=== PATIENT | female | born 1985 | race African-American/Black ===

== ENCOUNTER 2025-05-06 08:05 | Outpatient (AMB) | payer OTHER, SELFPAY ==
--- OUTSIDE RECORDS SUMMARY | 2025-01-29 08:00 | XMS_ITS | Encounter Summary ---
Author Organization [facility] Address [address] [place] [address] Care Team Providers Care Supervisor Long Goods Name Role Phone Gerald Haddad MD Primary Care Provider [phone] Reason for Visit * Reason Comments Follow-up Encounter Details Date Type Department Care Team ([facility] st Contact Info) Description 01/29/2025 9:00 AM EDT Office Visit [facility] Hematology Oncology [address] [place] [phone] Elizabeth Sargent PA [address] [place] [address] Iron deficiency anemia due to chronic blood loss (Primary Dx); Menorrhagia with regular cycle Social History Tobacco Use Types Packs/Day Years Used Date Smoking Tobacco: Never Smokeless Tobacco: Never Tobacco Cessation:Counseling Given: Not Answered Alcohol Use Standard Drinks/Week Comments Yes 1 (1 standard drink = 0.6 oz pur e alcohol) Housing Instability Answer Date Recorde d Are you worried that in the next 2 months you may not have stable housing? Yes 09/19/2024 Food Access & Nutrition Answer Date Rec orded Do you have access to a vari ety of food including fruits and vegetables? Yes 09/19/2024 Access to Healthcare Answer Date Record ed Within the last 3 months, sarabjit w many times did you visit the emergency department for your medical care? 0 09/19/2024 Health Literacy Answer Date Recorded How often do you need to hav e someone help you when you read instructions, pamphlets, or other written material from your doctor or pharmacy? Never 09/19/2024 Caregiver: How often do you need to have someone help you when you read instructions, pamphlets, or other written material from your doctor or pharmacy? Not on file 09/19/2024 Financial Risk Answer Date Recorded How hard is it for you to pa y for the very basics like food, housing, medical care, and air conditioning / heating? Very hard 09/19/2024 Transportation Answer Date Recorded Has the lack of transportati on kept you from meetings, work, or from getting things needed for daily living? No Has the lack of transportati on kept you from medical appointments or from getting medications? No 09/19/2024 Social Isolation Answer Date Recorded How often do you feel lonely or isolated from th ose around you? Never 09/19/2024 Food Risk Answer Date Recorded Within the past 12 months we worried whether our food would run out before we got money to buy more. Not asked 09/19/2024 Within the past 12 months th e food we bought just didn't last and we didn't have money to get more. Never true 09/19/2024 Dependent Care Answer Date Recorded Do you need help finding or paying for care for your loved ones. For example, child care team lead or elderly care for an older adult? No 09/19/2024 Education Answer Date Recorded Do you think completing more education or training, like finishing a GED, going to college, or learning a trade, would be helpful for you? No 09/19/2024 Employment and Income Answer Date Recor ded During the last four weeks, have you been actively looking for work? No 09/19/2024 Living Situation Answer Date Recorded What is your living situation? Unrecognized valu e 09/19/2024 Comments Unknown Sex and Gender Information Value Date Recorded Sex Assigned at Female 08/22/2024 9:03 AM EST Legal Sex Female 11:04 AM EDT Gender Identity Female 08/22/2024 9:03 AM EST Sexual Orientation Choose not to disclose 2024 9:03 AM EST documented as of this encounter Last Filed Vital Signs Vital Sign Reading Time Taken Comments Blood Pressure 131/88 01/29/2025 9:02 AM EDT Pulse 69 01/29/2025 9:02 AM EDT Temperature 36.6 C (97.8 F) 01/29/2025 9:02 AM EDT Respiratory Rate - - Oxygen Saturation 100% 01/29/2025 9:02 AM EDT Inhaled Oxygen Concentration - - Weight 115 kg (253 lb 6.4 oz) 01/29/2025 9:02 AM EDT Height 167.6 cm (5' 5.98 ) 01/29/2025 9:02 AM ED T Body Mass Index 40.92 01/29/2025 9:02 AM EDT documented in this encounter Progress Notes * JAMES Mcbride - 01/29/2025 9:00 AM EDTAddended by: ELIZABETH SARGENT on: 05/02/2025 03:35 PM Modules accepted: Orders * JAMES Mcbride - 01/29/2025 9:00 AM EDT Images from the original note were not included. Hematology/Oncology Consult Note Date of Consult: 01/29/2025 Patient's Primary Care Physician: Gerald Haddad MD Subjective History of Present Illness 39-year-old female who returns to our hematology clinic for follow up of MARCUS. She is here for routine 6 months follow-up. S/P 2 Feraheme infusions on 08/22/24 and 08/31/24. She tolerates well. She claims she has been sleeping better since infusions but no significant change in energy levels. She had 2 menstrual cycles within the month of December. She is no longer takes Blood Builder, she stopped after infusions. Regular iron causes constipation. She denies any other clinical bleeding or black stools. She reports chronic mild fatigue. She denies abnormal cravings, headache, dizziness, palpitations, chest pain, shortness of breath. Hematologic History: No records prior to December 2023. She used to live in [place] and moved to [place] in July of 2023. Per patient, she has been anemic since age 14, after she had her first child. She has taken iron onand off over the years. Has hx of heavy menses and claims that she did not respond to any therapy. S/P 2 Feraheme infusions on 08/22/24 and 08/31/24 Past Medical History Past Medical History: Diagnosis Date Anxiety 01/12/2024 DX:Anxiety Chronic right-sided low back pain 01/12/2024 DX:Chronic right-sided low back pain Obesity (BMI 30-39.9) 01/12/2024 DX:Obesity (BMI 30-39.9) Past Surgical History Past Surgical History: Procedure Laterality Date APPENDECTOMY N/A PROCEDURE: CA APPENDECTOMY; COMMENT: at age 12, at [place] TONSILLECTOMY Bilateral PROCEDURE: HISTORICAL TONSILLECTOMY; COMMENT: at age 8 y, in [place]. Family History Family History Problem Relation Name Age of Onset Hypertension Mother Other (Other: sickle cell trait) Sister Asthma Brother Lung cancer Maternal Grandmother Prostate cancer Maternal Grandfather Dementia Paternal Grandmother Personal and Social History Social History Tobacco Use Smoking Status Never Smokeless Tobacco Never Social History Substance and Sexual Activity Alcohol Use Yes Alcohol/week: 1.0 standard drink of alcohol Social History Substance and Sexual Activity Drug Use Never She lives at a family intermediate. 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 Hem/Lymph : No palpable lymph nodes, no bleeding or easy bruising Objective Medications Current Outpatient Medications: escitalopram (LEXAPRO) 10 mg tablet, TAKE 1 TABLET BY MOUTH EVERY DAY, Disp: 90 tablet, Rfl: 1 ferrous sulfate 325 mg (65 mg elemental iron) tablet, Take 1 tablet (325 mg total) by mouth 1 (one)time each day. (Patient not taking: Reported on 01/29/2025), Disp: , Rfl: Allergies Allergies Allergen Reactions Penicillins Itching Physical Exam Vitals: 01/29/25 0902 BP: 131/88 BP Location: Right arm Patient Position: Sitting BP Cuff Size: Large adult Pulse: 69 Temp: 36.6 ??C (97.8 ??F) TempSrc: Temporal SpO2: 100% Weight: 115 kg (253 lb 6.4 oz) Height: 1.676 m (65.98 ) Body mass index is 40.92 kg/m??. General: well appearing, in no acute distress Eyes: conjunctiva pink and sclera are Normal without icterus Resp: CTA; normal inspiratory effort, no wheezes, rhonchi or rales Cardio: RRR, no murmurs rubs or gallops Abdomen: soft non tender, non distended, normoactive bowel sounds, MSK: FROM of UE and Les bilaterally; no edema Skin: warm, dry, no rashes Neuro: alert and oriented, normal speech, normal gait Imaging Labs Assessment & Plan MARCUS; menorrhagia: Records are limited because she moved from [place] to [place] in July 2023 Per patient, she has been anemic since age 14, after she had her 1st child Anemia workup was consistent with MARCUS in the setting of heavy menses Failed previous management therapies to control heavy menses On oral iron on and off over the years Switched to blood builder late last year because it causes less constipation but she only takes it about once a week. She stopped taking blood builder since her infusions. Advised to resume blood builder intake S/P 2 Feraheme infusions on 08/22/24 and 08/31/24. Update labs today and address as needed FOV in 6 months with labs prior; RTO sooner prn 05/02/25: Labs reviewed. Feraheme x 2 infusions ordered. New set of labs to be collected prior to next visit. Please note, this note may have been created in part by using [employer] dictation software, and therefore, it may contain typographical and/or grammatical errors inherent in a voice recognition software program Sign: Elizabeth Sargent PA-C Hematology/Oncology [facility] [phone] documented in this encounter Plan of Treatment Upcoming Encounters Date Type Department Care Team (Late st Contact Info) Description 08/01/2025 8:30 AM EST Office Visit [facility] Hematology Oncology [address] [place] [address] Elizabeth Sargent PA [address] [place] [address] Scheduled Orders Name Type Priority Associated Diagnoses Orde r Schedule CBC and differential Lab Routine Iron deficiency anemia due to chronic blood loss Menorrhagia with regular cycle Expected: 08/02/2025 (Approximate), Expires: 05/02/2026 Ferritin Lab Routine Iron deficiency anemia due to chronic blood loss Menorrhagia with regular cycle Expected: 08/02/2025 (Approximate), Expires: 05/02/2026 Iron and TIBC Lab Routine Iron deficiency anemia due to chronic blood loss Menorrhagia with regular cycle Expected: 08/02/2025 (Approximate), Expires: 05/02/2026 documented as of this encounter Results * (ABNORMAL) Iron and TIBC (05/01/2025 4:02 PM EST) Iron 45 40 - 150 mcg/dL LAB CHEMISTRY METHOD 05/01/2025 8:14 PM EST [facility] TIBC 360 250 - 450 mcg/dL LAB CHEMISTRY METHOD 05/01/2025 8:14 PM EST [facility] Iron Saturation 13(L) 15 - 50 % LAB CHEMISTRY METHOD 05/01/2025 8:14 PM EST [facility] Blood Venous blood specimen / Unknown Venipuncture / Unknown 05/01/2025 4:02 PM EST 05/01/2025 4:02 PM EST us Elizabeth RAMIREZ LAB BLOOD ORDERABLES Final Re sult [facility] [address] [place] [address], [place] [phone] * (ABNORMAL) Ferritin (05/01/2025 4:02 PM EST) Ferritin 5(L) 8 - 252 ng/mL LAB CHEMISTRY METHOD 05/01/2025 8:15 PM EST [facility] Blood Venous blood specimen / Unknown Venipuncture / Unknown 05/01/2025 4:02 PM EST 05/01/2025 4:02 PM EST us Elizabeth RAMIREZ LAB BLOOD ORDERABLES Final Re sult Performing Organization Address [facility]/ZIP Co de Phone Number [facility] [address] [place] [address], [place] [phone] * Iron and TIBC (01/29/2025 9:25 AM EDT) Iron 65 40 - 150 mcg/dL LAB CHEMISTRY METHOD 01/29/2025 12:17 PM EDT [facility] TIBC 347 250 - 450 mcg/dL LAB CHEMISTRY METHOD 01/29/2025 12:17 PM EDT [facility] Iron Saturation 19 15 - 50 % LAB CHEMISTRY METHOD 01/29/2025 12:17 PM EDT [facility] Blood Venous blood specimen / Unknown Venipuncture / Unknown 01/29/2025 9:25 AM EDT 01/29/2025 11:17 AM EDT us Elizabeth RAMIREZ LAB BLOOD ORDERABLES Final Re sult Performing Organization Address [facility] Co de Phone Number [facility] [address] [place] [address], [place] [phone] * Ferritin (01/29/2025 9:25 AM EDT) Ferritin 15 8 - 252 ng/mL LAB CHEMISTRY METHOD 01/29/2025 12:17 PM EDT [facility] Blood Venous blood specimen / Unknown Venipuncture / Unknown 01/29/2025 9:25 AM EDT 01/29/2025 11:17 AM EDT us Elizabeth RAMIREZ LAB BLOOD ORDERABLES Final Re sult [facility] ([facility] [address] [place] [address], documented in this encounter Visit Diagnoses Diagnosis Iron deficiency anemia due to chronic blood loss- Primary Iron deficiency anemia secondary to blood loss (chronic) Menorrhagia with regular cycle documented in this encounter Additional Health Concerns Assessment Noted Time PHQ-9 Depression Total Score: 3 09/20/19 25 3:27 PM EDT documented as of this encounter Care Teams Supervisor Long Goods Relationship Specialty Start Date End Date Gerald Haddad MD [address] [place] [phone] PCP - General 09/19/23 documented as of this encounter
--- OUTSIDE RECORDS SUMMARY | 2025-05-01 16:00 | XMS_ITS | Encounter Summary ---
Author Organization [facility] Address [address] [place] [address] Care Team Providers Care Treating And Pumping Supervisor Name Role Phone Gerald Haddad MD Primary Care Provider [phone] Reason for Visit * Reason Comments Annual Exam Encounter Details Date Type Department Care Team ([facility] Contact Info) Description 05/01/2025 4:00 PM EST Office Visit Internal Medicine - [place] [address] [facility] [address] [place] [id number] Mayte Metz, HANNAH [address] [facility] [address] [place] [address] Routine adult health maintenance (Primary Dx); BMI 39.0-39.9,adult; Iron deficiency anemia due to chronic blood loss; Menorrhagia with regular cycle; Anxiety; Chronic right-sided low back pain, unspecified whether sciatica present; Screening for ischemic heart disease; Screening for diabetes mellitus; Vitamin B12 deficiency; Vitamin D deficiency; Insomnia, unspecified type; Obesity, morbid (CMS/HCC V24, CMS/HCC V28); Screen for STD (sexually transmitted disease) Social History Tobacco Use Types Packs/Day Years Used Date Smoking Tobacco: Never Smokeless Tobacco: Never Alcohol Use Standard Drinks/Week Comments Yes 3 (1 standard drink = 0.6 oz pur [...] ed Within the last 3 months, sarabjit isaacs many times did you visit the emergency [...] care for your loved ones. For example, children's aide or elderly care for an older adult? [...] living situation? Unrecognized valu e 09/19/2024 Comments No Sex and Gender Information Value Date Recorded Sex Assigned at Female 08/22/2024 9:03 AM EST Legal Sex Female 11:04 AM EDT Gender Identity Female 08/22/2024 9:03 AM EST Sexual Orientation Choose not to disclose 2024 9:03 AM EST documented as of this encounter Last Filed Vital Signs Vital Sign Reading Time Taken Comments Blood Pressure 110/70 05/01/2025 3:13 PM EST Pulse - - Temperature 36.3 C (97.3 F) 05/01/2025 3:13 PM EST Respiratory Rate - - Oxygen Saturation - - Inhaled Oxygen Concentration - - Weight 111 kg (243 lb 12.8 oz) 05/01/2025 3:13 P M EST Height 167.6 cm (5' 6 ) 05/01/2025 3:13 PM EST Body Mass Index 39.35 05/01/2025 3:13 PM EST documented in this encounter Ordered Prescriptions Prescription Sig Dispense Quantity Refills Last Filled Start Date End Date hydrOXYzine HCL (ATARAX) 10 mg tabletIndications:In somnia, unspecified type Take 1 tablet (10 mg total) by mouth at bedtime as needed for anxiety (insomnia). 30 tablet 11 05/01/2025 melatonin 3 mg disintegrating tabletIndications:In somnia, unspecified type Dissolve 1 tablet (3 mg total) on top of the tongue at bedtime. 90 tablet 3 05/01/2025 documented in this encounter Progress Notes * Mayte Metz NP - 05/01/2025 4:00 PM EST CHIEF COMPLAINT: Annual Exam IDENTIFIER: Yolanda Dumont is a 39 y.o. old female who presents for evaluation of general medical health. History of Present Illness Yolanda is a 39-year-old female who presents for a physical exam. Sleep Disturbances - Difficulty initiating and maintaining sleep - Often wakes at 3:00 AM daily - Anxiety managed with Lexapro 10 mg - Interested in exploring additional treatment options for sleep issues - Has not tried pharmacological interventions for sleep - Eliminated electronic distractions Diet and Weight Management - Unbalanced diet, consuming one large meal per day, typically lunch - Skips breakfast - Recently started walking since returning to school - Gained 20 pounds since last visit - Appointment with weight rn case management on 05/06/2025 - Interested in weight loss injections General Health and Lifestyle - Mother of three children - Currently single - Maintains regular dental check-ups every six months - Received both influenza and HPV vaccines - Has not yet undergone annual Pap smear Chronic medical illnesses: Anxiety, back pain, obesity, hep C antibody positive, iron deficiency anemia. Patient does not try to eat a balanced diet, does not exercise regularly Patient does not smoke, patient does not drink alcohol in excess, patient does not use street drugs, patient does not drink caffeinated beverages in excess. Patient is not sexually active. Reports 1 partners in the past 12 months. Health Maintenance: Health Maintenance Due Topic Date Due HPV Vaccines (1 - 3-dose SCDM series) Never done HIV Screening Never done Influenza Vaccine (1) 02/25/2025 COVID-19 Vaccine ( season) 2025 ROS: See HPI. PAST MEDICAL HISTORY: Patient Active Problem List Diagnosis Date Noted Obesity, morbid (CMS/HCC V24, CMS/[facility] V28) 05/01/2025 Iron deficiency anemia due to chronic blood loss 05/17/2024 Hepatitis C antibody test positive 03/26/2024 Anxiety 01/12/2024 Chronic right-sided low back pain 01/12/2024 Obesity (BMI 30-39.9) 01/12/2024 Surgical History[1] Most Recent Immunizations Administered Date(s) Administered COVID-19 (Moderna/Spikevax) 12yo and older 09/20/2023 Hep B, Unspecified 04/20/2000 HepB-CpG (Heplisav-B) 18yo and older 01/05/2024 Influenza Quadravalent, MDCK, 0.5ml, preservative free (Flucelvax) 6mo and older 04/23/2022 Influenza trivalent, 0.5mL, preservative free (Fluarix; FluLaval; Fluzone) ages 6mo and older (Afluria) 3 years and older 02/22/2024 MMR, measles mumps and rubella Live (Priorix; M-M-R II) 12mo and older 01/05/2024 Moderna SARS-CoV-2 COVID-19, mRNA, LNP-S, preservative free 09/20/2023 Pfizer (ages 12 & older) Bivalent, COVID-19 04/09/2022 Pfizer SARS-CoV-2 COVID-19, mRNA, LNP-S, preservative free 04/26/2023 Tdap Tetanus diptheria acellular pertussis (Boostrix; Adacel) 7yo and older 11/10/2023 HEALTH MAINTENANCE: Health Maintenance Topic Date Due HPV Vaccines (1 - 3-dose SCDM series) Never done HIV Screening Never done Influenza Vaccine (1) 02/25/2025 COVID-19 Vaccine ( season) 2025 Social Influencers of Health Screening 09/19/2025 Cervical Cancer Screening: Pap Smear 09/19/2026 Cholesterol Screening (Lipid Panel) 01/11/2029 DTaP,Tdap,and Td Vaccines (2 - Td or Tdap) 11/09/2033 RSV Immunization Adult Patients (1 - 1-dose 75+ series) 2060 Hepatitis B Vaccines Completed Hepatitis C Screening Completed Depression Screening Completed HIB Vaccines Aged Out IPV Vaccines Aged Out Hepatitis A Vaccines Aged Out MMR Vaccines Aged Out Varicella Vaccines Aged Out Meningococcal ACWY Vaccine Aged Out Meningococcal B Vaccine Aged Out Pneumococcal Vaccine: Pediatrics (0 to 5 Years) and At-Risk Patients (6 to 49 Years) Aged Out RSV Immunization Patients Under 20 months Aged Out SOCIAL HISTORY: Social History Tobacco Use Smoking status: Never Smokeless tobacco: Never Substance Use Topics Alcohol use: Yes Alcohol/week: 3.0 standard drinks of alcohol Types: 3 Glasses of wine per week FAMILY HISTORY: Family History[2] Family Status Relation Name Status Mother (Not Specified) Sister (Not Specified) MGM MGF PGM Alive PGF Brother (Not Specified) Mat Aunt (Not Specified) No partnership data on file MEDICATIONS DISCONTINUED/REORDERED: There are no discontinued medications. ACTIVE MEDICATIONS: Medications Taking[3] ALLERGIES: Allergies[4] PHYSICAL EXAM: Visit Vitals BP 110/70 (BP Location: Right arm, Patient Position: Sitting, BP Cuff Size: Adult) Temp 36.3 ??C (97.3 ??F) (Temporal) Ht 1.676 m (66 ) Wt 111 kg (243 lb 12.8 oz) BMI 39.35 kg/m?? OB Status Having periods Smoking Status Never BSA 2.18 m?? Body mass index is 39.35 kg/m??. Physical Exam Constitutional: Appearance: Normal appearance. Cardiovascular: Rate and Rhythm: Normal rate and regular rhythm. Pulses: Normal pulses. Heart sounds: Normal heart sounds. Pulmonary: Effort: Pulmonary effort is normal. Breath sounds: Normal breath sounds. Neurological: General: No focal deficit present. Mental Status: She is alert and oriented to person, place, and time. Psychiatric: Mood and Affect: Mood normal. Behavior: Behavior normal. LABS: Appointment on 01/29/2025 Component Date Value Ref Range Status Ferritin 01/29/2025 15 8 - 252 ng/mL Final Iron 01/29/2025 65 40 - 150 mcg/dL Final TIBC 01/29/2025 347 250 - 450 mcg/dL Final Iron Saturation 01/29/2025 19 15 - 50 % Final WBC 01/29/2025 5.8 4.8 - 10.8 K/mcL Final RBC 01/29/2025 4.70 3.80 - 4.80 M/mcL Final Hemoglobin 01/29/2025 12.1 11.5 - 16.0 g/dL Final Hematocrit 01/29/2025 38.4 35.0 - 47.0 % Final MCV 01/29/2025 81.7 79.0 - 98.0 FL Final MCH 01/29/2025 25.7 (L) 27.0 - 32.0 pcg Final MCHC 01/29/2025 31.5 (L) 32.0 - 37.0 g/dL Final RDW 01/29/2025 14.7 11.0 - 15.0 % Final Platelets 01/29/2025 188 130 - 400 K/mcL Final MPV 01/29/2025 11.5 (H) 7.0 - 11.0 FL Final NRBC 01/29/2025 0.0 <1.0 % Final NRBC Absolute 01/29/2025 0.00 <0.10 K/mcL Final Neutrophils Relative 01/29/2025 66.0 % Final Lymphocytes Relative 01/29/2025 22.0 % Final Monocytes Relative 01/29/2025 8.7 % Final Eosinophils Relative 01/29/2025 2.8 % Final Basophils Relative 01/29/2025 0.2 % Final Immature Granulocytes Relative 01/29/2025 0.3 % Final Neutrophils Absolute 01/29/2025 3.81 1.50 - 7.00 K/mcL Final Lymphocytes Absolute 01/29/2025 1.27 1.00 - 5.00 K/mcL Final Monocytes Absolute 01/29/2025 0.50 0.20 - 1.00 K/mcL Final Eosinophils Absolute 01/29/2025 0.16 0.00 - 0.50 K/mcL Final Basophils Absolute 01/29/2025 0.01 0.00 - 0.20 K/mcL Final Immature Granulocytes Absolute 01/29/2025 0.02 0.00 - 0.03 K/mcL Final IMPRESSION: 1. Routine adult health maintenance 2. BMI 39.0-39.9,adult 3. Iron deficiency anemia due to chronic blood loss 4. Menorrhagia with regular cycle 5. Anxiety 6. Chronic right-sided low back pain, unspecified whether sciatica present 7. Screening for ischemic heart disease 8. Screening for diabetes mellitus 9. Vitamin B12 deficiency 10. Vitamin D deficiency 11. Insomnia, unspecified type 12. Obesity, morbid (CMS/HCC V24, CMS/[facility] V28) 13. Screen for STD (sexually transmitted disease) PLAN: 1. Routine adult health maintenance Comprehensive metabolic panel Thyroid stimulating hormone with reflex to free t4 and free t3 Magnesium 2. BMI 39.0-39.9,adult 3. Iron deficiency anemia due to chronic blood loss 4. Menorrhagia with regular cycle 5. Anxiety 6. Chronic right-sided low back pain, unspecified whether sciatica present 7. Screening for ischemic heart disease Lipid panel with reflex to direct LDL 8. Screening for diabetes mellitus Hemoglobin A1c 9. Vitamin B12 deficiency Vitamin B12 10. Vitamin D deficiency Vitamin D 25 hydroxy 11. Insomnia, unspecified type melatonin 3 mg disintegrating tablet hydrOXYzine HCL (ATARAX) 10 mg tablet 12. Obesity, morbid (CMS/HCC V24, CMS/[facility] V28) 13. Screen for STD (sexually transmitted disease) HIV 1,2 antibody, p24 antigen with reflex to differentiation Treponema pallidum antibody with reflex to RPR and particle agglutination Hepatitis C antibody Chlamydia trachomatis and Neisseria gonorrhoeae molecular study Genetic cancer syndrome screening done: No. Glaucoma screening regularly I offered STD testing to the patient, ordered Discussed healthy dietary choices. Discussed increasing dietary fiber through fruits, veggies, whole grains. Advised the patient to exercise 30mins a day most days of the week. Advised patient to see a dentist at least yearly. Advised patient to use sunscreen, hats, clothing while outdoors in direct sunlight. Advised patient to wear a seatbelt while in the car. Advised the patient to check smoke/fire alarms at home regularly. Pelvic exams and PAPs regularly Discussed safe sex practices Self breast exams monthly. I have reviewed the following sections of the chart: Past Medical History Family History Social History Health Maintenance: Annual physical exam completed. 1. Annual physical: Routine annual physical exam done today. All the routine labs and screening test evaluated and ordered for the patient. Advised patient reach out to her [facility] for routine Pap smear. 2. Obesity: BMI 39.35. Counseling done about the diet and exercise to lose some weight. - Discuss weight loss options with weight rn case management on 05/06/2025. 3. Iron deficiency anemia/menorrhagia: Advised to continue iron supplementation. Counseling done about iron rich diet and instruction given. Also advised the patient to follow-up with the gynecology for management of the menorrhagia. 4. Anxiety: Continue Lexapro 10 mg daily. Counseling done about taking the medication. 5. Chronic back pain: Counseling done about it. Also advised the patient to do the exercise. Instruction already given last visit. 6. Vitamin D deficiency: Continue vitamin D supplementation regularly. 7. Hepatitis C antibody positive: Will check hep C level. 8. Insomnia: Take melatonin at bedtime. May take hydroxyzine as needed for insomnia. Recommend follow-up in 1 year for annual physical exam. Advised the patient to call me if any problems. Patient understands the plan. Patient is in agreement with the plan. I have obtained verbal consent from Yolanda Dumont prior to the recording. I have advised Yolanda Dumont that she may refuse the recording and require the recording to be turned off at any time during this encounter. Mayte Metz NP on 05/01/2025 at 4:32 PM EST [1] Past Surgical History: Procedure Laterality Date APPENDECTOMY N/A PROCEDURE: ME APPENDECTOMY; COMMENT: at age 12, at [place] TONSILLECTOMY Bilateral PROCEDURE: HISTORICAL TONSILLECTOMY; COMMENT: at age 8 y, in [place]. [2] Family History Problem Relation Name Age of Onset Hypertension Mother Other (Other: sickle cell trait) Sister Lung cancer Maternal Grandmother Prostate cancer Maternal Grandfather Dementia Paternal Grandmother Asthma Brother Breast cancer Mother's Sister [3] Outpatient Medications Marked as Taking for the 05/01/25 encounter (Office Visit) with Mayte Metz NP Medication Sig Dispense Refill escitalopram (LEXAPRO) 10 mg tablet TAKE 1 TABLET BY MOUTH EVERY DAY 90 tablet 1 ibuprofen (ADVIL,MOTRIN) 800 mg tablet Take 1 tablet (800 mg total) by mouth 3 (three) times a day if needed for mild pain (pain). 20 tablet 0 incontinence pad, liner, disp pad 1 each 1 (one) time each day. 240 each 11 [4] Allergies Allergen Reactions Penicillins Itching documented in this encounter Plan of Treatment Upcoming Encounters Date Type Department Care Team (Late st Contact Info) Description 08/01/2025 8:30 AM EST Office Visit [facility] Hematology Oncology [address] [place] [address] Elizabeth Martinez PA [address] [place] [address] documented as of this encounter Results * Chlamydia trachomatis and Neisseria gonorrhoeae molecular study (05/01/2025 4:02 PM EST) [facility] Neisseria gonorrhoeae PCR Negative Negative LAB MOLECULAR DIAGNOSTICS METHOD 05/02/2025 10:08 AM EST [facility] Chlamydia trachomatis PCR Negative Negative LAB MOLECULAR DIAGNOSTICS METHOD 05/02/2025 10:08 AM EST [facility] Urine Urine specimen from urethra / Unknown Non-blood Collection / Unknown 05/01/2025 4:02 PM EST 05/01/2025 4:02 PM EST us Mayte Metz NP LAB MICROBIOLOGY - GENERAL ORDER CLAY Final Result [facility] [address] [place] [address], * (ABNORMAL) Hepatitis C antibody (05/01/2025 4:02 PM EST) [facility] Hepatitis C Antibody Positive (A) Negative LAB CHEMISTRY METHOD 05/01/2025 8:48 PM EST [facility] Comment:If confirmation of t his positive HCV Ab screening test is needed, please redraw and order HCV Viral Load. Note--> This test may not be added on due to different specimen requirements. Blood Venous blood specimen / Unknown Venipuncture / Unknown 05/01/2025 4:02 PM EST 05/01/2025 4:02 PM EST Mayte Metz LAB BLOOD ORDERABLES Final Resul t Performing Organization Address [facility]/ZIP Co de Phone Number [facility] [address] [place] [address], [place] [phone] * Treponema pallidum antibody with reflex to RPR and particle agglutination (05/01/2025 4:02 PM EST) Pathologist [facility] T. Pallidum Antibodies Negative Negative LAB CHEMISTRY METHOD 05/01/2025 8:20 PM EST [facility] Blood Venous blood specimen / Unknown Venipuncture / Unknown 05/01/2025 4:02 PM EST 05/01/2025 4:02 PM EST [facility] BLOOD ORDERABLES Final Resul t Performing Organization Address [facility] de Phone Number [facility] [address] [place] [address], [place] [phone] * HIV 1,2 antibody, p24 antigen with reflex to differentiation (05/01/2025 4:02 PM EST) [facility] HIV Combo AB/AG Negative Negative LAB CHEMISTRY METHOD 05/01/2025 8:49 PM EST [facility] Blood Venous blood specimen / Unknown Venipuncture / Unknown 05/01/2025 4:02 PM EST 05/01/2025 4:02 PM EST Narrative [facility] - 05/01/2025 8:49 PM EST This assay is a 4th generation assay allowing for earlier detection of HIV infection by detecting the presence of the HIV-1 p24 antigen as well as the traditional antibodies to HIV type 1 (including group O) and type 2. Use of a 4th generation assay is the current CDC recommendation for HIV screening. Mayte Cedillogeovanny BODY TECHNICIAN LAB BLOOD ORDERABLES Final Resul t Performing Organization Address City/[facility]/ZIP Co de Phone Number [facility] [address] [place] [address], [place] [phone] * (ABNORMAL) Vitamin D 25 hydroxy (05/01/2025 4:02 PM EST) [facility] Vit D, 25-Hydroxy 17.4(L) 30.0 - 80.0 ng/mL LAB CHEMISTRY METHOD 05/01/2025 8:09 PM EST [facility] Blood Venous blood specimen / Unknown Venipuncture / Unknown 05/01/2025 4:02 PM EST 05/01/2025 4:02 PM EST Mayte Cedillogeovanny LAB BLOOD ORDERABLES Final Resul t Performing Organization Address [facility] Co de Phone Number [facility] [address] [place] [address], [place] [phone] * (ABNORMAL) Vitamin B12 (05/01/2025 4:02 PM EST) [facility] Vitamin B-12 1,357(H) 250 - 900 pcg/mL LAB CHEMISTRY METHOD 05/01/2025 8:14 PM EST [facility] Blood Venous blood specimen / Unknown Venipuncture / Unknown 05/01/2025 4:02 PM EST 05/01/2025 4:02 PM EST Mayte Metz LAB BLOOD ORDERABLES Final Resul t Performing Organization Address City/[facility] Co de Phone Number [facility] [address] [place] [address], [place] [phone] * Magnesium (05/01/2025 4:02 PM EST) [facility] Magnesium 2.0 1.9 - 2.6 mg/dL LAB CHEMISTRY METHOD 05/01/2025 7:47 PM EST [facility] Blood Venous blood specimen / Unknown Venipuncture / Unknown 05/01/2025 4:02 PM EST 05/01/2025 4:02 PM EST Mayte Metz BODY TECHNICIAN LAB BLOOD ORDERABLES Final Resul t Performing Organization Address City/[facility]/ZIP Co de Phone Number [facility] [address] [place] [address], [place] [phone] * Thyroid stimulating hormone with reflex to free t4 and free t3 (05/01/2025 4:02 PM EST) Pathologist [facility] TSH 1.81 0.40 - 4.00 mcIU/mL LAB CHEMISTRY METHOD 05/01/2025 8:10 PM EST [facility] Blood Venous blood specimen / Unknown Venipuncture / Unknown 05/01/2025 4:02 PM EST 05/01/2025 4:02 PM EST Mayet Metz BODY TECHNICIAN LAB BLOOD ORDERABLES Final Resul t Performing Organization Address [facility] Co de Phone Number [facility] [address] [place] [address], [place] [phone] * Hemoglobin A1c (05/01/2025 4:02 PM EST) Hemoglobin A1C 5.3 <6.5 % LAB CHEMISTRY METHOD 05/02/2025 2:15 PM EST [facility] Mean Bld Glu Estim. 105 mg/dL LAB CHEMISTRY METHOD 05/02/2025 2:15 PM EST [facility] Blood Venous blood specimen / Unknown Venipuncture / Unknown 05/01/2025 4:02 PM EST 05/01/2025 4:02 PM EST Mayte Metz BODY TECHNICIAN LAB BLOOD ORDERABLES Final Resul t [facility] [address] [place] [address], * Comprehensive metabolic panel (05/01/2025 4:02 PM EST) Sodium 138 133 - 145 mmol/L LAB CHEMISTRY METHOD 05/01/2025 8:14 PM [facility] Potassium 3.7 3.5 - 5.5 mmol/L LAB CHEMISTRY METHOD 05/01/2025 8:14 PM [facility] Chloride 106 96 - 110 mmol/L LAB CHEMISTRY METHOD 05/01/2025 8:14 PM [facility] CO2 26 21 - 32 mmol/L LAB CHEMISTRY METHOD 05/01/2025 8:14 PM [facility] Anion Gap 6 3 - 11 LAB CHEMISTRY METHOD 05/01/2025 8:14 PM [facility] Glucose 93 70 - 100 mg/dL LAB CHEMISTRY METHOD 05/01/2025 8:14 PM [facility] BUN 11 5 - 25 mg/dL LAB CHEMISTRY METHOD 05/01/2025 8:14 PM [facility] Creatinine 0.73 0.50 - 1.10 mg/dL LAB CHEMISTRY METHOD 05/01/2025 8:14 PM [facility] eGFR 107 >=60 mL/min/1. 73m2 LAB CHEMISTRY METHOD 05/01/2025 8:14 PM [facility] Comment:Calculation based on the Chronic Kidney Disease Epidemiology Collaboration (CKD-EPI) equation refit without adjustment for race. BUN/Creatinine Ratio 15.1 LAB CHEMISTRY METHOD 05/01/2025 8:14 PM [facility] Calcium 9.0 8.5 - 10.5 mg/dL LAB CHEMISTRY METHOD 05/01/2025 8:14 PM [facility] AST (SGOT) 15 10 - 42 unit/L LAB CHEMISTRY METHOD 05/01/2025 8:14 PM [facility] ALT (SGPT) 29 10 - 60 unit/L LAB CHEMISTRY METHOD 05/01/2025 8:14 PM [facility] Alkaline Phosphatase 78 42 - 121 unit/L LAB CHEMISTRY METHOD 05/01/2025 8:14 PM [facility] Total Protein 7.3 6.0 - 8.0 g/dL LAB CHEMISTRY METHOD 05/01/2025 8:14 PM [facility] Albumin 3.6 3.2 - 5.0 g/dL LAB CHEMISTRY METHOD 05/01/2025 8:14 PM [facility] Total Bilirubin 0.2 0.0 - 1.4 mg/dL LAB CHEMISTRY METHOD 05/01/2025 8:14 PM [facility] Blood Venous blood specimen / Unknown Venipuncture / Unknown 05/01/2025 4:02 PM EST 05/01/2025 4:02 PM EST us Mayte Metz NP LAB BLOOD ORDERABLES Final Resul t [facility] [address] [place] [address], [place] [phone] * (ABNORMAL) Lipid panel with reflex to direct LDL (05/01/2025 4:02 PM EST) Cholesterol 207(H) 0 - 200 mg/dL LAB CHEMISTRY METHOD 05/01/2025 8:14 PM [facility] Triglycerides 142 0 - 150 mg/dL LAB CHEMISTRY METHOD 05/01/2025 8:14 PM [facility] HDL 57 >=40 mg/dL LAB CHEMISTRY METHOD 05/01/2025 8:14 PM [facility] LDL Calculated 122(H) 0 - 100 mg/dL LAB CHEMISTRY METHOD 05/01/2025 8:14 PM [facility] Comment:Estimated LDL Calcul ated using equation: Total cholesterol - HDL cholesterol - (Triglycerides/5) VLDL Cholesterol [place] 28.4 mg/dL LAB CHEMISTRY METHOD 05/01/2025 8:14 PM EST [facility] Non HDL Chol. (LDL+VLDL) 150(H) <145 mg/dL LAB CHEMISTRY METHOD 05/01/2025 8:14 PM EST [facility] Chol/HDL Ratio 3.6 0.0 - 4.4 LAB CHEMISTRY METHOD 05/01/2025 8:14 PM EST [facility] Blood Venous blood specimen / Unknown Venipuncture / Unknown 05/01/2025 4:02 PM EST 05/01/2025 4:02 PM EST us Mayte Metz NP LAB BLOOD ORDERABLES Final Resul t Performing Organization Address City/State/[facility] Co de Phone Number [facility] [address] [place] [address], documented in this encounter Visit Diagnoses Diagnosis Routine adult health maintenance- Primary BMI 39.0-39.9,adult Iron deficiency anemia due to chronic blood loss Iron deficiency anemia secondary to blood loss (chronic) Menorrhagia with regular cycle Anxiety Anxiety state, unspecified Chronic right-sided low back pain, unspecified whether sciatica present Screening for ischemic heart disease Screening for diabetes mellitus Vitamin B12 deficiency Other B-complex deficiencies Vitamin D deficiency Insomnia, unspecified type Obesity, morbid ([facility] V24, [facility] V28) Morbid obesity Screen for STD (sexually transmitted disease) Screening examination for venereal disease documented in this encounter Additional Health Concerns Assessment Noted Time PHQ-9 Depression Total Score: 3 09/20/19 25 3:27 PM EDT documented as of this encounter Care Teams Treating And Pumping Supervisor Relationship Specialty Start Date End Date Gerald Haddad MD [address] [place] [phone] PCP - General 09/19/23 documented as of this encounter
--- OUTSIDE RECORDS SUMMARY | 2025-05-01 16:30 | XMS_ITS | Encounter Summary ---
Author Organization [facility] Address [address] [place] [address] Care Team Providers Care Typecasting Machine Operator Name Role Phone Gerald Haddad MD Primary Care Provider [phone] Encounter Details Date Type Department Care Team (Late st Contact Info) Description 05/01/2025 4:30 PM EST Lab Draw Station - [address] [facility] [address] [place] [address] Screen for STD (sexually transmitted disease); Vitamin D deficiency; Routine adult health maintenance; Vitamin B12 deficiency; Screening for diabetes mellitus; Screening for ischemic heart disease; Iron deficiency anemia due to chronic blood loss Social History Tobacco Use Types Packs/Day Years [...] Record ed Within the last 3 months, ho w many times did you visit the [...] care for your loved ones. For example, early childhood teacher assistant or elderly care for an older adult? [...] AM EST documented as of this encounter Plan of Treatment Upcoming Encounters Date Type Department Care Team (Late st Contact Info) Description 08/01/2025 8:30 AM EST Office Visit [facility] Hematology Oncology [address] [place] [phone] Elizabeth Martinez PA [address] [place] [address] documented as of this encounter Procedures Procedure Name Priority Date/Time Associated Diagnosis Comments HEPATITIS C ANTIBODY Routine 05/01/2025 4:02 PM EST Screen for STD (sexually transmitted disease) HIV 1, 2 ANTIBODY, P24 ANTIGEN WITH REFLEX TO DIFFERENTIATION Routine 05/01/2025 4:02 PM EST Screen for STD (sexually transmitted disease) AST, ALT, BILIRUBIN ELR STATE REPORTABLES Routine 05/01/2025 4:02 PM EST Screen for STD (sexually transmitted disease) TREPONEMA PALLIDUM ANTIBODY WITH REFLEX TO RPR AND PARTICLE AGGLUTINATION Routine 05/01/2025 4:02 PM EST Screen for STD (sexually transmitted disease) THYROID STIMULATING HORMONE WITH REFLEX TO FREE T4 AND FREE T3 Routine 05/01/2025 4:02 PM EST Routine adult health maintenance LIPID PANEL WITH REFLEX TO DIRECT LDL Routine 05/01/2025 4:02 PM EST Screening for ischemic heart disease CBC WITH AUTO DIFFERENTIAL Routine 05/01/2025 4:02 PM EST Iron deficiency anemia due to chronic blood loss IRON AND TIBC Routine 05/01/2025 4:02 PM EST Iron deficiency anemia due to chronic blood loss CHLAMYDIA TRACHOMATIS AND NEISSERIA GONORRHOEAE PCR Routine 05/01/2025 4:02 PM EST Screen for STD (sexually transmitted disease) VITAMIN D 25 HYDROXY Routine 05/01/2025 4:02 PM EST Vitamin D deficiency CBC AND DIFFERENTIAL Routine 05/01/2025 4:02 PM EST Iron deficiency anemia due to chronic blood loss MAGNESIUM Routine 05/01/2025 4:02 PM EST Routine adult health maintenance HEMOGLOBIN A1C Routine 05/01/2025 4:02 PM EST Screening for diabetes mellitus FERRITIN Routine 05/01/2025 4:02 PM EST Iron deficiency anemia due to chronic blood loss VITAMIN B12 Routine 05/01/2025 4:02 PM EST Vitamin B12 deficiency COMPREHENSIVE METABOLIC PANEL Routine 05/01/2025 4:02 PM EST Routine adult health maintenance documented in this encounter Results * AST, ALT, Bilirubin ELR state reportables (05/01/2025 4:02 PM EST) Pathologist [facility] ALT (SGPT) 29 10 - 60 unit/L LAB CHEMISTRY METHOD 05/01/2025 9:19 PM EST [facility] AST (SGOT) 15 10 - 42 unit/L LAB CHEMISTRY METHOD 05/01/2025 9:19 PM [facility] Total Bilirubin 0.2 0.0 - 1.4 mg/dL LAB CHEMISTRY METHOD 05/01/2025 9:19 PM [facility] Platelets 230 K/[facility] LAB HEMETOLOGY METHOD 05/01/2025 9:19 PM [facility] Blood Venous blood specimen / Unknown Venipuncture / Unknown 05/01/2025 4:02 PM EST 05/01/2025 4:02 PM EST us Mayte Metz [employer] LAB BLOOD ORDERABLES Final Resul t [facility] [address] [place] [address], * (ABNORMAL) CBC auto differential (05/01/2025 4:02 PM EST) Pathologist [facility] WBC 8.6 4.8 - 10.8 K/mcL LAB HEMETOLOGY METHOD 05/01/2025 6:13 PM EST [facility] RBC 4.70 3.80 - 4.80 M/mcL LAB HEMETOLOGY METHOD 05/01/2025 6:13 PM [facility] Hemoglobin 11.2(L) 11.5 - 16.0 g/dL LAB HEMETOLOGY METHOD 05/01/2025 6:13 PM [facility] Hematocrit 37.3 35.0 - 47.0 % LAB HEMETOLOGY METHOD 05/01/2025 6:13 PM [facility] MCV 79.5 79.0 - 98.0 FL LAB HEMETOLOGY METHOD 05/01/2025 6:13 PM [facility] MCH 23.9(L) 27.0 - 32.0 pcg LAB HEMETOLOGY METHOD 05/01/2025 6:13 PM [facility] MCHC 30.0(L) 32.0 - 37.0 g/dL LAB HEMETOLOGY METHOD 05/01/2025 6:13 PM [facility] RDW 15.1(H) 11.0 - 15.0 % LAB HEMETOLOGY METHOD 05/01/2025 6:13 PM [facility] Platelets 230 130 - 400 K/mcL LAB HEMETOLOGY METHOD 05/01/2025 6:13 PM [facility] MPV 10.9 7.0 - 11.0 FL LAB HEMETOLOGY METHOD 05/01/2025 6:13 PM [facility] NRBC 0.0 <1.0 % LAB HEMETOLOGY METHOD 05/01/2025 6:13 PM [facility] NRBC Absolute 0.00 <0.10 K/mcL LAB HEMETOLOGY METHOD 05/01/2025 6:13 PM [facility] Neutrophils Relative 69.6 % LAB HEMETOLOGY METHOD 05/01/2025 6:13 PM [facility] Lymphocytes Relative 19.0 % LAB HEMETOLOGY METHOD 05/01/2025 6:13 PM [facility] Monocytes Relative 7.8 % LAB HEMETOLOGY METHOD 05/01/2025 6:13 PM [facility] Eosinophils Relative 2.9 % LAB HEMETOLOGY METHOD 05/01/2025 6:13 PM [facility] Basophils Relative 0.2 % LAB HEMETOLOGY METHOD 05/01/2025 6:13 PM [facility] Immature Granulocytes Relative 0.5 % LAB HEMETOLOGY METHOD 05/01/2025 6:13 PM [facility] Neutrophils Absolute 6.00 1.50 - 7.00 K/mcL LAB HEMETOLOGY METHOD 05/01/2025 6:13 PM [facility] Lymphocytes Absolute 1.64 1.00 - 5.00 K/mcL LAB HEMETOLOGY METHOD 05/01/2025 6:13 PM [facility] Monocytes Absolute 0.67 0.20 - 1.00 K/mcL LAB HEMETOLOGY METHOD 05/01/2025 6:13 PM [facility] Eosinophils Absolute 0.25 0.00 - 0.50 K/mcL LAB HEMETOLOGY METHOD 05/01/2025 6:13 PM [facility] Basophils Absolute 0.02 0.00 - 0.20 K/mcL LAB HEMETOLOGY METHOD 05/01/2025 6:13 PM [facility] Immature Granulocytes Absolute 0.04(H) 0.00 - 0.03 K/mcL LAB HEMETOLOGY METHOD 05/01/2025 6:13 PM [facility] Blood Venous blood specimen / Unknown Venipuncture / Unknown 05/01/2025 4:02 PM EST 05/01/2025 4:02 PM EST us Elizabeth RAMIREZ LAB BLOOD ORDERABLES Final Re sult [facility] [address] [place] [address], [place] [phone] * Chlamydia trachomatis and Neisseria gonorrhoeae molecular study (05/01/2025 4:02 PM EST) [facility] Neisseria gonorrhoeae PCR Negative Negative LAB MOLECULAR DIAGNOSTICS METHOD 05/02/2025 10:08 AM EST [facility] Chlamydia trachomatis PCR Negative Negative LAB MOLECULAR DIAGNOSTICS METHOD 05/02/2025 10:08 AM [facility] Urine Urine specimen from urethra / Unknown Non-blood Collection / Unknown 05/01/2025 4:02 PM EST 05/01/2025 4:02 PM EST Mayte Metz NP LAB MICROBIOLOGY - GENERAL ORDER CLAY Final Result Performing Organization Address [facility]/ZIP Co de Phone Number [facility] [address] [place] [address], [place] [phone] * (ABNORMAL) Ferritin (05/01/2025 4:02 PM EST) [facility] Ferritin 5(L) 8 - 252 ng/mL LAB CHEMISTRY METHOD 05/01/2025 8:15 PM [facility] Blood Venous blood specimen / Unknown Venipuncture / Unknown 05/01/2025 4:02 PM EST 05/01/2025 4:02 PM EST Elizabeth RAMIREZ LAB BLOOD ORDERABLES Final Re sult [facility] [address] [place] [address], [place] [phone] * (ABNORMAL) Iron and TIBC (05/01/2025 4:02 PM EST) [facility] Iron 45 40 - 150 mcg/dL LAB CHEMISTRY METHOD 05/01/2025 8:14 PM EST [facility] TIBC 360 250 - 450 mcg/dL LAB CHEMISTRY METHOD 05/01/2025 8:14 PM EST [facility] Iron Saturation 13(L) 15 - 50 % LAB CHEMISTRY METHOD 05/01/2025 8:14 PM [facility] Blood Venous blood specimen / Unknown Venipuncture / Unknown 05/01/2025 4:02 PM EST 05/01/2025 4:02 PM EST us Elizabeth RAMIREZ LAB BLOOD ORDERABLES Final Re sult [facility] [address] [place] [address], [place] [phone] * (ABNORMAL) Lipid panel with reflex to direct LDL (05/01/2025 4:02 PM EST) Cholesterol 207(H) 0 - 200 mg/dL LAB CHEMISTRY METHOD 05/01/2025 8:14 PM [facility] Triglycerides 142 0 - 150 mg/dL LAB CHEMISTRY METHOD 05/01/2025 8:14 PM [facility] HDL 57 >=40 mg/dL LAB CHEMISTRY METHOD 05/01/2025 8:14 PM [facility] LDL Calculated 122(H) 0 - 100 mg/dL LAB CHEMISTRY METHOD 05/01/2025 8:14 PM [facility] Comment:Estimated LDL Calcul ated using equation: Total cholesterol - HDL cholesterol - (Triglycerides/5) VLDL Cholesterol Jarocho 28.4 mg/dL LAB CHEMISTRY METHOD 05/01/2025 8:14 PM [facility] Non HDL Chol. (LDL+VLDL) 150(H) <145 mg/dL LAB CHEMISTRY METHOD 05/01/2025 8:14 PM [facility] Chol/HDL Ratio 3.6 0.0 - 4.4 LAB CHEMISTRY METHOD 05/01/2025 8:14 PM [facility] Blood Venous blood specimen / Unknown Venipuncture / Unknown 05/01/2025 4:02 PM EST 05/01/2025 4:02 PM EST us Mayte Metz [employer] LAB BLOOD ORDERABLES Final Resul t [facility] [address] [place] [address], [place] [phone] * Comprehensive metabolic panel (05/01/2025 4:02 PM EST) Sodium 138 133 - 145 mmol/L LAB CHEMISTRY METHOD 05/01/2025 8:14 PM [facility] Potassium 3.7 3.5 - 5.5 mmol/L LAB CHEMISTRY METHOD 05/01/2025 8:14 PM [facility] Chloride 106 96 - 110 mmol/L LAB CHEMISTRY METHOD 05/01/2025 8:14 PM [facility] CO2 26 21 - 32 mmol/L LAB CHEMISTRY METHOD 05/01/2025 8:14 PM [facility] Anion Gap 6 3 - 11 LAB CHEMISTRY METHOD 05/01/2025 8:14 PM [facility] Glucose 93 70 - 100 mg/dL LAB CHEMISTRY METHOD 05/01/2025 8:14 PM [facility] BUN 11 5 - 25 mg/dL LAB CHEMISTRY METHOD 05/01/2025 8:14 PM [facility] Creatinine 0.73 0.50 - 1.10 mg/dL LAB CHEMISTRY METHOD 05/01/2025 8:14 PM [facility] eGFR 107 >=60 mL/min/1. 73m2 LAB CHEMISTRY METHOD 05/01/2025 8:14 PM [facility] Comment:Calculation based on the Chronic Kidney Disease Epidemiology Collaboration (CKD-EPI) equation refit without adjustment for race. BUN/Creatinine Ratio 15.1 LAB CHEMISTRY METHOD 05/01/2025 8:14 PM [facility] Calcium 9.0 8.5 - 10.5 mg/dL LAB CHEMISTRY METHOD 05/01/2025 8:14 PM [facility] AST (SGOT) 15 10 - 42 unit/L LAB CHEMISTRY METHOD 05/01/2025 8:14 PM [facility] ALT (SGPT) 29 10 - 60 unit/L LAB CHEMISTRY METHOD 05/01/2025 8:14 PM [facility] Alkaline Phosphatase 78 42 - 121 unit/L LAB CHEMISTRY METHOD 05/01/2025 8:14 PM [facility] Total Protein 7.3 6.0 - 8.0 g/dL LAB CHEMISTRY METHOD 05/01/2025 8:14 PM [facility] Albumin 3.6 3.2 - 5.0 g/dL LAB CHEMISTRY METHOD 05/01/2025 8:14 PM [facility] Total Bilirubin 0.2 0.0 - 1.4 mg/dL LAB CHEMISTRY METHOD 05/01/2025 8:14 PM [facility] Blood Venous blood specimen / Unknown Venipuncture / Unknown 05/01/2025 4:02 PM EST 05/01/2025 4:02 PM EST us Mayte Metz NP LAB BLOOD ORDERABLES Final Resul t [facility] [address] [place] [address], * Hemoglobin A1c (05/01/2025 4:02 PM EST) Hemoglobin A1C 5.3 <6.5 % LAB CHEMISTRY METHOD 05/02/2025 2:15 PM [facility] Mean Bld Glu Estim. 105 mg/dL LAB CHEMISTRY METHOD 05/02/2025 2:15 PM [facility] Blood Venous blood specimen / Unknown Venipuncture / Unknown 05/01/2025 4:02 PM EST 05/01/2025 4:02 PM EST Mayte Metz [employer] LAB BLOOD ORDERABLES Final Resul t Performing Organization Address City/[facility]/ZIP Co de Phone Number [facility] [address] [place] [address], [place] [phone] * Thyroid stimulating hormone with reflex to free t4 and free t3 (05/01/2025 4:02 PM EST) Pathologist [facility] TSH 1.81 0.40 - 4.00 mcIU/mL LAB CHEMISTRY METHOD 05/01/2025 8:10 PM EST [facility] Blood Venous blood specimen / Unknown Venipuncture / Unknown 05/01/2025 4:02 PM EST 05/01/2025 4:02 PM EST Mayte Cedillogeovanny [employer] LAB BLOOD ORDERABLES Final Resul t Performing Organization Address [facility] de Phone Number [facility] [address] [place] [address], [place] [phone] * (ABNORMAL) Vitamin B12 (05/01/2025 4:02 PM EST) [facility] Vitamin B-12 1,357(H) 250 - 900 pcg/mL LAB CHEMISTRY METHOD 05/01/2025 8:14 PM EST [facility] Blood Venous blood specimen / Unknown Venipuncture / Unknown 05/01/2025 4:02 PM EST 05/01/2025 4:02 PM EST Mayte Metz [employer] LAB BLOOD ORDERABLES Final Resul t Performing Organization Address City/[facility]/ZIP Co de Phone Number [facility] [address] [place] [address], [place] [phone] * Magnesium (05/01/2025 4:02 PM EST) Pathologist [facility] Magnesium 2.0 1.9 - 2.6 mg/dL LAB CHEMISTRY METHOD 05/01/2025 7:47 PM EST [facility] Blood Venous blood specimen / Unknown Venipuncture / Unknown 05/01/2025 4:02 PM EST 05/01/2025 4:02 PM EST Mayte Metz NP LAB BLOOD ORDERABLES Final Resul t Performing Organization Address City/[facility]/ZIP Co de Phone Number [facility] [address] [place] [address], [place] [phone] * HIV 1,2 antibody, p24 antigen with reflex to differentiation (05/01/2025 4:02 PM EST) Pathologist [facility] HIV Combo AB/AG Negative Negative LAB CHEMISTRY METHOD 05/01/2025 8:49 PM EST [facility] Blood Venous blood specimen / Unknown Venipuncture / Unknown 05/01/2025 4:02 PM EST 05/01/2025 4:02 PM EST Narrative [facility] - 05/01/2025 8:49 PM EST This assay is a 4th generation assay allowing for earlier detection of HIV infection by detecting the presence of the HIV-1 p24 antigen as well as the traditional antibodies to HIV type 1 (including group O) and type 2. Use of a 4th generation assay is the current CDC recommendation for HIV screening. Mayte Metz [facility]ANNA[facility] LAB BLOOD ORDERABLES Final Resul t Performing Organization Address City/[facility]/ZIP Co de Phone Number [facility] [address] [place] [address], [place] [phone] * (ABNORMAL) Vitamin D 25 hydroxy (05/01/2025 4:02 PM EST) Pathologist [facility] Vit D, 25-Hydroxy 17.4(L) 30.0 - 80.0 ng/mL LAB CHEMISTRY METHOD 05/01/2025 8:09 PM EST [facility] Blood Venous blood specimen / Unknown Venipuncture / Unknown 05/01/2025 4:02 PM EST 05/01/2025 4:02 PM EST Mayte Cedillogeovanny [employer] LAB BLOOD ORDERABLES Final Resul t Performing Organization Address City/[facility]/ZIP Co de Phone Number [facility] [address] [place] [address], [place] [phone] * Treponema pallidum antibody with reflex to RPR and particle agglutination (05/01/2025 4:02 PM EST) T. Pallidum Antibodies Negative Negative LAB CHEMISTRY METHOD 05/01/2025 8:20 PM EST [facility] Blood Venous blood specimen / Unknown Venipuncture / Unknown 05/01/2025 4:02 PM EST 05/01/2025 4:02 PM EST Mayte Cedillogeovanny LAB BLOOD ORDERABLES Final Resul t Performing Organization Address [facility] Co de Phone Number [facility] [address] [place] [address], [place] [phone] * (ABNORMAL) Hepatitis C antibody (05/01/2025 4:02 PM EST) [facility] Hepatitis C Antibody Positive (A) Negative LAB CHEMISTRY METHOD 05/01/2025 8:48 PM EST [facility] Comment:If confirmation of t his positive HCV Ab screening test is needed, please redraw and order HCV Viral Load. Note--> This test may not be added on due to different specimen requirements. Blood Venous blood specimen / Unknown Venipuncture / Unknown 05/01/2025 4:02 PM EST 05/01/2025 4:02 PM EST Mayte Cedillogeovanny [employer] LAB BLOOD ORDERABLES Final Resul t Performing Organization Address City/[facility]/ZIP Co de Phone Number [facility] [address] [place] [address], [place] [phone] documented in this encounter Visit Diagnoses Diagnosis Screen for STD (sexually transmitted disease) Screening examination for venereal disease Vitamin D deficiency Routine adult health maintenance Vitamin B12 deficiency Other B-complex deficiencies Screening for diabetes mellitus Screening for ischemic heart disease Iron deficiency anemia due to chronic blood loss Iron deficiency anemia secondary to blood loss (chronic) documented in this encounter Additional Health Concerns Assessment Noted Time PHQ-9 Depression Total Score: 3 09/20/19 25 3:27 PM EDT documented as of this encounter Care Teams Typecasting Machine Operator Relationship Specialty Start Date End Date Gerald Haddad MD [address] [place] [phone] PCP - General 09/19/23 documented as of this encounter
--- OUTSIDE RECORDS SUMMARY | 2025-05-06 07:45 | XMS_ITS | Encounter Summary ---
Author Organization [facility] [place] [facility] [place] [address] Care Team Providers Care Automatic Nailing Machine Operator Name Role Phone Gerald Haddad MD Primary Care Provider [phone] Encounter Details Date Type Department Care Team (Late st Contact Info) Description 05/06/2025 7:45 AM EST Lab Draw Station - [address] [place] [address] Hepatitis C antibody positive Social History Tobacco Use Types Packs/Day Years [...] your loved ones. For example, early childhood educator aide or elderly care for an older [...] Description 08/01/2025 8:30 AM EST Office Visit [facility] Hematology Oncology [address] [place] [phone] Elizabeth Martinez PA [address] [place] [address] Pending Results Name Type Priority Associated Diagnoses Date /Time Hepatitis C virus quantitative molecular study Lab Routine Hepatitis C antibody positive 05/06/2025 7:46 AM EST documented as of this encounter Visit Diagnoses Diagnosis Hepatitis C antibody positive documented in this encounter Additional Health Concerns Assessment Noted Time PHQ-9 Depression Total Score: 3 09/20/19 25 3:27 PM EDT documented as of this encounter Care Teams Automatic Nailing Machine Operator Relationship Specialty Start Date End Date Gerald Haddad MD [address] [place] [phone] PCP - General 09/19/23 documented as of this encounter
--- OUTSIDE RECORDS SUMMARY | 2025-05-06 08:10 | XMS_ITS | Encounter Summary ---
Author Organization [facility] Address [address] [place] [address] Care Team Providers Care Nursery Teacher Name Role Phone Gerald Haddad MD Primary Care Provider [phone] Encounter Details Date Type Department Care Team ([facility] st Contact Info) Description 04/08/2025 Results Follow-Up Internal Medicine - [place] [address] [facility] [address] [place] [address] Gerald Haddad MD [address] [place] [phone] Social History Tobacco Use Types Packs/Day Years Used Date Smoking Tobacco: Never Smokeless Tobacco: Never Alcohol Use Standard Drinks/Week Comments Yes 1 [...] care for your loved ones. For example, attendant child activity or elderly care for an older adult? [...] Description 08/01/2025 8:30 AM EST Office Visit [facility] Hematology Oncology [address] [place] [phone] Elizabeth Martinez PA [address] [place] [address] documented as of this encounter Visit Diagnoses Not on filedocumented in this encounter Additional Health Concerns Assessment Noted Time PHQ-9 Depression Total Score: 3 09/20/19 25 3:27 PM EDT documented as of this encounter Care Teams Nursery Teacher Relationship Specialty Start Date End Date Gerald Haddad MD [address] [place] [phone] PCP - General 09/19/23 documented as of this encounter
--- OUTSIDE RECORDS SUMMARY | 2025-05-06 08:11 | XMS_ITS | Clinical Summary ---
Author Organization [facility] Address [address] [place] [address] Phone Care Team Providers Care Chaplain Name Role Phone Gerald Haddad MD Primary Care Provider [phone] Allergies Active Allergy Reactions Criticality Noted Date Comments Penicillins Itching 07/10/2022 Medications incontinence pad, liner, disp padIndications:Urin quentin incontinence, unspecified type 1 each 1 (one) time each day. 240 each 11 5 Active escitalopram (LEXAPRO) 10 mg tablet TAKE 1 TABLET BY MOUTH EVERY DAY 90 tablet 1 5 Active ibuprofen (ADVIL,MOTRIN) 800 mg tablet Take 1 tablet (800 mg total) by mouth 3 (three) times a day if needed for mild pain (pain). 20 tablet 5 Active melatonin 3 mg disintegrating tabletIndications:I nsomnia, unspecified type Dissolve 1 tablet (3 mg total) on top of the tongue at bedtime. 90 tablet 3 5 Active hydrOXYzine HCL (ATARAX) 10 mg tabletIndications:I nsomnia, unspecified type Take 1 tablet (10 mg total) by mouth at bedtime as needed for anxiety (insomnia). 30 tablet 11 5 Active cholecalciferol (Vitamin D3) 50 mcg (2,000 unit) tabletIndications:V itamin D deficiency Take 1 tablet (2,000 Units total) by mouth 1 (one) time each day. 90 tablet 3 5 05/02/20 26 Active Active Problems Problem Noted Date Diagnosed Date Obesity, morbid (CMS/HCC V24, CMS/HCC V28) 05/01 Iron deficiency anemia due to chronic blood loss 05/17/2024 Hepatitis C antibody test positive 03/26/2024 Anxiety 01/12/2024 Chronic right-sided low back pain 01/12/2024 Obesity (BMI 30-39.9) 01/12/2024 Encounters Date Type Department Care Team Description 05/06/2025 7:45 AM EST Lab Draw Station - [address] [phone] Hepatitis C antibody positive 05/02/2025 Results Follow-Up [facility] [address] [place] [phone] Elizabeth Martinez PA 05/01/2025 4:30 PM EST Lab Draw Station - [address] [phone] Screen for STD (sexually transmitted disease); Vitamin D deficiency; Routine adult health maintenance; Vitamin B12 deficiency; Screening for diabetes mellitus; Screening for ischemic heart disease; Iron deficiency anemia due to chronic blood loss 05/01/2025 4:00 PM EST Office Visit Internal Medicine - [address] [phone] Mayte Metz NP Routine adult health maintenance (Primary Dx); BMI 39.0-39.9,adult; Iron deficiency anemia due to chronic blood loss; Menorrhagia with regular cycle; Anxiety; Chronic right-sided low back pain, unspecified whether sciatica present; Screening for ischemic heart disease; Screening for diabetes mellitus; Vitamin B12 deficiency; Vitamin D deficiency; Insomnia, unspecified type; Obesity, morbid (CMS/HCC V24, CMS/HCC V28); Screen for STD (sexually transmitted disease) 04/08/2025 Results Follow-Up Internal Medicine - [address] [phone] Gerald Haddad MD 04/06/2025 8:30 AM EDT - 04/06/2025 11:59 PM EDT Hospital [facility] [address] [phone] Encounter for screening mammogram for breast cancer Discharge Disposition: Home or Self Care 02/07/2025 Telephone Internal Medicine [address] [phone] Gerald Haddad MD 02/07/2025 Telephone Internal Medicine [address] [phone] Gerald Haddad MD 02/06/2025 9:15 AM EDT Office Visit Internal Medicine [address] [phone] Gerald Haddad MD Acute pain of left knee (Primary Dx); Anxiety; Obesity (BMI 30-39.9) from Last 3 Months Immunizations Immunization Administration Dates Next Due COVID-19 (Moderna/Spikevax) 12yo and older 09/19 Hep B, Unspecified 04/20/2000 HepB-CpG (Heplisav-B) 18yo and older 01/05/2024, 11/25/2023,09/20/2023 Influenza Quadravalent, MDCK , 0.5ml, preservative free (Flucelvax) 6mo and older 04/23/2022 Influenza trivalent, 0.5mL, preservative free (Fluarix; FluLaval; Fluzone) ages 6mo and older (Afluria) 3 years and older 02/22/2024 MMR, measles mumps and rubel la Live (Priorix; M-M-R II) 12mo and older 01/05/2024,11/10/2023 Moderna SARS-CoV-2 COVID-19, mRNA, LNP-S, preservative free 09/20/2023 Pfizer (ages 12 & older) Bivalent, COVID-19 03/27 Pfizer SARS-CoV-2 COVID-19, mRNA, LNP-S, preservative free 04/26/2023 Tdap Tetanus diptheria acell ular pertussis (Boostrix; Adacel) 7yo and older 11/10/2023 Surgical History Surgery Date Site/Laterality Comments TONSILLECTOMY Bilateral PROCEDURE: HISTORICAL TONSILLECTOMY; COMMENT: at age 8 y, in [place]. APPENDECTOMY N/A PROCEDURE: [place]EN[place]CT[place]; COMMENT: at age 12, at [place] Medical History Medical History Date Comments Obesity (BMI 30-39.9) 01/12/2024 DX:Obesity (BMI 30-39.9) Chronic right-sided low back pain 01/12/2024 DX:Chronic right-sided low back pain Anxiety 01/12/2024 DX:Anxiety Family History Medical History Relation Name Comments Asthma Brother Prostate cancer Maternal Grandfather Lung cancer Maternal Grandmother Hypertension Mother Breast cancer Mother's Sister Dementia Paternal Grandmother Other: sickle cell trait Sister Relation Name Status Comments Brother Maternal Grandfather Maternal Grandmother Mother Mother's Sister Paternal Grandfather Paternal Grandmother Alive Sister Social History Tobacco Use Types Packs/Day Years Used Date Smoking Tobacco: Never Smokeless Tobacco: Never Tobacco Cessation:Counseling Given: Not Answered Alcohol Use Standard Drinks/Week Comments Yes 3 [...] care for your loved ones. For example, exceptional children teacher assistant or elderly care for an [...] not to disclose 2024 9:03 AM EST Obstetrics History Para Term AB IAB SAB Ectopic Multiple Livin g Live Births 0 0 0 3 Last Filed Vital Signs Vital Sign Reading Time Taken Comments Blood Pressure 110/70 05/01/2025 3:13 PM EST Pulse 83 02/06/2025 9:12 AM EDT Temperature 36.3 C (97.3 F) 05/01/2025 3:13 PM EST Respiratory Rate 18 08/22/2024 9:45 AM EST Oxygen Saturation 98% 02/06/2025 9:12 AM EDT Inhaled Oxygen Concentration - - Weight 111 kg (243 lb 12.8 oz) 05/01/2025 3:13 P M EST Height 167.6 cm (5' 6 ) 05/01/2025 3:13 PM EST Body Mass Index 39.35 05/01/2025 3:13 PM EST Plan of Treatment Upcoming Encounters Date Type Department Care Team (Late st Contact Info) Description 08/01/2025 8:30 AM EST Office Visit [facility] [address] [place] [phone] Elizabeth Martinez PA [address] [place] [address] Health Maintenance Due Date Last Done Comments HPV Vaccines (1 - 3-dose SCDM series) 2012 COVID-19 Vaccine ( season) 2025 09/20/2023, 09/20/2023, 04/26/2023, Additional history exists Influenza Vaccine (#1) 2025 02/22/2024, 2021 Social Influencers of Health Screening 09/19/2025 09/19/2024 Cervical Cancer Screening: Pap Smear 09/19/2026 09/20/2023 Cholesterol Screening (Lipid Panel) 05/01/2030 05/01/2025, 01/12/2024, 01/12/2024 DTaP,Tdap,and Td Vaccines (2 - Td or Tdap) 11/09/2033 11/10/2023 RSV Immunization Adult Patients (1 - 1-dose 75+ series) 2060 Hepatitis B Vaccines Completed 01/05/2024, 11/25/2023, 09/20/2023, Additional history exists MMR Vaccines Aged Out 01/05/2024, 11/10/2023 No lo nger eligible based on patient's age to complete this topic Depression Screening Completed 09/19/2024, 02/16/20 HIV Screening Completed 05/01/2025 Hepatitis C Screening Completed 05/01/2025 , 02/23/2024, 02/23/2024 HIB Vaccines Aged Out No longer eligi ble based on patient's age to complete this topic Hepatitis A Vaccines Aged Out No long er eligible based on patient's age to complete this topic IPV Vaccines Aged Out No longer eligi ble based on patient's age to complete this topic Meningococcal ACWY Vaccine Aged Out N o longer eligible based on patient's age to complete this topic Meningococcal B Vaccine Aged Out No l onger eligible based on patient's age to complete this topic Pneumococcal Vaccine: Pediatrics (0 to 5 Years) and At-Risk Patients (6 to 49 Years) Aged Out No longer eligible based on patient's age to complete this topic RSV Immunization Patients Under 20 months Aged Out No longer eligible based on patient's age to complete this topic Varicella Vaccines Aged Out No longer eligible based on patient's age to complete this topic Procedures Procedure Name Priority Date/Time Associated Diagnosis Comments AST, ALT, BILIRUBIN ELR STATE REPORTABLES Routine 05/01/2025 4:02 PM EST Screen for STD (sexually transmitted disease) CBC WITH AUTO DIFFERENTIAL Routine 05/01/2025 4:02 PM EST Iron deficiency anemia due to chronic blood loss CBC AND DIFFERENTIAL Routine 05/01/2025 4:02 PM EST Iron deficiency anemia due to chronic blood loss FERRITIN Routine 05/01/2025 4:02 PM EST Iron deficiency anemia due to chronic blood loss IRON AND TIBC Routine 05/01/2025 4:02 PM EST Iron deficiency anemia due to chronic blood loss LIPID PANEL WITH REFLEX TO DIRECT LDL Routine 05/01/2025 4:02 PM EST Screening for ischemic heart disease COMPREHENSIVE METABOLIC PANEL Routine 05/01/2025 4:02 PM EST Routine adult health maintenance HEMOGLOBIN A1C Routine 05/01/2025 4:02 PM EST Screening for diabetes mellitus THYROID STIMULATING HORMONE WITH REFLEX TO FREE T4 AND FREE T3 Routine 05/01/2025 4:02 PM EST Routine adult health maintenance VITAMIN B12 Routine 05/01/2025 4:02 PM EST Vitamin B12 deficiency MAGNESIUM Routine 05/01/2025 4:02 PM EST Routine adult health maintenance HIV 1, 2 ANTIBODY, P24 ANTIGEN WITH REFLEX TO DIFFERENTIATION Routine 05/01/2025 4:02 PM EST Screen for STD (sexually transmitted disease) VITAMIN D 25 HYDROXY Routine 05/01/2025 4:02 PM EST Vitamin D deficiency TREPONEMA PALLIDUM ANTIBODY WITH REFLEX TO RPR AND PARTICLE AGGLUTINATION Routine 05/01/2025 4:02 PM EST Screen for STD (sexually transmitted disease) HEPATITIS C ANTIBODY Routine 05/01/2025 4:02 PM EST Screen for STD (sexually transmitted disease) CHLAMYDIA TRACHOMATIS AND NEISSERIA GONORRHOEAE PCR Routine 05/01/2025 4:02 PM EST Screen for STD (sexually transmitted disease) MG MAMMO DIGITAL SCREENING W RICHARD BILAT Routine 04/06/2025 8:51 AM EDT Encounter for screening mammogram for breast cancer HM DEPRESSION SCREENING Routine 02/16/2024 PAP SMEAR Routine 09/20/2023 from Last 3 Months or Most Recently Relevant to Health Maintenance Results * (ABNORMAL) Hepatitis C antibody (05/01/2025 4:02 PM EST) Hepatitis C Antibody Positive (A) Negative LAB CHEMISTRY METHOD 05/01/2025 8:48 PM EST [facility] Comment:If confirmation of t his positive HCV Ab screening test is needed, please redraw and order HCV Viral Load. Note--> This test may not be added on due to different specimen requirements. Blood Venous blood specimen / Unknown Venipuncture / Unknown 05/01/2025 4:02 PM EST 05/01/2025 4:02 PM EST us Mayte Metz NP LAB BLOOD ORDERABLES Final Resul t [facility] [address] [place] [address], [place] [phone] * HIV 1,2 antibody, p24 antigen with reflex to differentiation (05/01/2025 4:02 PM EST) [facility] HIV Combo AB/AG Negative Negative LAB CHEMISTRY METHOD 05/01/2025 8:49 PM EST [facility] Blood Venous blood specimen / Unknown Venipuncture / Unknown 05/01/2025 4:02 PM EST 05/01/2025 4:02 PM EST Narrative [facility] - 05/01/2025 8:49 PM EST This assay is a 4th generation assay allowing for earlier detection of HIV infection by detecting the presence of the HIV-1 p24 antigen as well as the traditional antibodies to HIV type 1 (including group O) and type 2. Use of a 4th generation assay is the current CDC recommendation for HIV screening. Mayte Metz NP LAB BLOOD ORDERABLES Final Resul t Performing Organization Address City/[facility]/ZIP Co de Phone Number [facility] [address] [place] [address], [place] [phone] * AST, ALT, Bilirubin ELR state reportables (05/01/2025 4:02 PM EST) [facility] ALT (SGPT) 29 10 - 60 unit/L LAB CHEMISTRY METHOD 05/01/2025 9:19 PM EST [facility] AST (SGOT) 15 10 - 42 unit/L LAB CHEMISTRY METHOD 05/01/2025 9:19 PM [facility] Total Bilirubin 0.2 0.0 - 1.4 mg/dL LAB CHEMISTRY METHOD 05/01/2025 9:19 PM EST [facility] Platelets 230 K/mcL LAB HEMETOLOGY METHOD 05/01/2025 9:19 PM EST [facility] Blood Venous blood specimen / Unknown Venipuncture / Unknown 05/01/2025 4:02 PM EST 05/01/2025 4:02 PM EST Mayte Metz NP LAB BLOOD ORDERABLES Final Resul t [facility] [address] [place] [address], [place] [phone] * Treponema pallidum antibody with reflex to RPR and particle agglutination (05/01/2025 4:02 PM EST) T. Pallidum Antibodies Negative Negative LAB CHEMISTRY METHOD 05/01/2025 8:20 PM EST [facility] Blood Venous blood specimen / Unknown Venipuncture / Unknown 05/01/2025 4:02 PM EST 05/01/2025 4:02 PM EST us Mayte Metz NP LAB BLOOD ORDERABLES Final Resul t Performing Organization Address [facility]/ZIP Co de Phone Number [facility] [address] [place] [address], [place] [phone] * Thyroid stimulating hormone with reflex to free t4 and free t3 (05/01/2025 4:02 PM EST) Pathologist [facility] TSH 1.81 0.40 - 4.00 mcIU/mL LAB CHEMISTRY METHOD 05/01/2025 8:10 PM EST [facility] Blood Venous blood specimen / Unknown Venipuncture / Unknown 05/01/2025 4:02 PM EST 05/01/2025 4:02 PM EST us Mayte Metz NP LAB BLOOD ORDERABLES Final Resul t [facility] [address] [place] [address], [place] [phone] * (ABNORMAL) Lipid panel with reflex to direct LDL (05/01/2025 4:02 PM EST) Pathologist [facility] Cholesterol 207(H) 0 - 200 mg/dL LAB CHEMISTRY METHOD 05/01/2025 8:14 PM EST [facility] Triglycerides 142 0 - 150 mg/dL LAB CHEMISTRY METHOD 05/01/2025 8:14 PM [facility] HDL 57 >=40 mg/dL LAB CHEMISTRY METHOD 05/01/2025 8:14 PM [facility] LDL Calculated 122(H) 0 - 100 mg/dL LAB CHEMISTRY METHOD 05/01/2025 8:14 PM [facility] Comment:Estimated LDL Calcul ated using equation: Total cholesterol - HDL cholesterol - (Triglycerides/5) VLDL Cholesterol Jarocho 28.4 mg/dL LAB CHEMISTRY METHOD 05/01/2025 8:14 PM [facility] Non HDL Chol. (LDL+VLDL) 150(H) <145 mg/dL LAB CHEMISTRY METHOD 05/01/2025 8:14 PM [facility] Chol/HDL Ratio 3.6 0.0 - 4.4 LAB CHEMISTRY METHOD 05/01/2025 8:14 PM [facility] Blood Venous blood specimen / Unknown Venipuncture / Unknown 05/01/2025 4:02 PM EST 05/01/2025 4:02 PM EST us Matye Metz NP LAB BLOOD ORDERABLES Final Resul t [facility] [address] [place] [address], * (ABNORMAL) CBC auto differential (05/01/2025 4:02 PM EST) WBC 8.6 4.8 - 10.8 K/mcL LAB HEMETOLOGY METHOD 05/01/2025 6:13 PM [facility] RBC 4.70 3.80 - 4.80 M/mcL LAB HEMETOLOGY METHOD 05/01/2025 6:13 PM [facility] Hemoglobin 11.2(L) 11.5 - 16.0 g/dL LAB HEMETOLOGY METHOD 05/01/2025 6:13 PM [facility] Hematocrit 37.3 35.0 - 47.0 % LAB HEMETOLOGY METHOD 05/01/2025 6:13 PM [facility] MCV 79.5 79.0 - 98.0 FL LAB HEMETOLOGY METHOD 05/01/2025 6:13 PM [facility] MCH 23.9(L) 27.0 - 32.0 pcg LAB HEMETOLOGY METHOD 05/01/2025 6:13 PM [facility] MCHC 30.0(L) 32.0 - 37.0 g/dL LAB HEMETOLOGY METHOD 05/01/2025 6:13 PM [facility] RDW 15.1(H) 11.0 - 15.0 % LAB HEMETOLOGY METHOD 05/01/2025 6:13 PM [facility] Platelets 230 130 - 400 K/mcL LAB HEMETOLOGY METHOD 05/01/2025 6:13 PM [facility] MPV 10.9 7.0 - 11.0 FL LAB HEMETOLOGY METHOD 05/01/2025 6:13 PM [facility] NRBC 0.0 <1.0 % LAB HEMETOLOGY METHOD 05/01/2025 6:13 PM [facility] NRBC Absolute 0.00 <0.10 K/mcL LAB HEMETOLOGY METHOD 05/01/2025 6:13 PM [facility] Neutrophils Relative 69.6 % LAB HEMETOLOGY METHOD 05/01/2025 6:13 PM [facility] Lymphocytes Relative 19.0 % LAB HEMETOLOGY METHOD 05/01/2025 6:13 PM [facility] Monocytes Relative 7.8 % LAB HEMETOLOGY METHOD 05/01/2025 6:13 PM [facility] Eosinophils Relative 2.9 % LAB HEMETOLOGY METHOD 05/01/2025 6:13 PM [facility] Basophils Relative 0.2 % LAB HEMETOLOGY METHOD 05/01/2025 6:13 PM EST [facility] Immature Granulocytes Relative 0.5 % LAB HEMETOLOGY METHOD 05/01/2025 6:13 PM [facility] Neutrophils Absolute 6.00 1.50 - 7.00 K/mcL LAB HEMETOLOGY METHOD 05/01/2025 6:13 PM [facility] Lymphocytes Absolute 1.64 1.00 - 5.00 K/mcL LAB HEMETOLOGY METHOD 05/01/2025 6:13 PM [facility] Monocytes Absolute 0.67 0.20 - 1.00 K/mcL LAB HEMETOLOGY METHOD 05/01/2025 6:13 PM [facility] Eosinophils Absolute 0.25 0.00 - 0.50 K/mcL LAB HEMETOLOGY METHOD 05/01/2025 6:13 PM [facility] Basophils Absolute 0.02 0.00 - 0.20 K/mcL LAB HEMETOLOGY METHOD 05/01/2025 6:13 PM [facility] Immature Granulocytes Absolute 0.04(H) 0.00 - 0.03 K/mcL LAB HEMETOLOGY METHOD 05/01/2025 6:13 PM [facility] Blood Venous blood specimen / Unknown Venipuncture / Unknown 05/01/2025 4:02 PM EST 05/01/2025 4:02 PM EST us Elizabeth RAMIREZ LAB BLOOD ORDERABLES Final Re sult [facility] [address] [place] [address], * (ABNORMAL) Iron and TIBC (05/01/2025 4:02 PM EST) Iron 45 40 - 150 mcg/dL LAB CHEMISTRY METHOD 05/01/2025 8:14 PM [facility] TIBC 360 250 - 450 mcg/dL LAB CHEMISTRY METHOD 05/01/2025 8:14 PM [facility] Iron Saturation 13(L) 15 - 50 % LAB CHEMISTRY METHOD 05/01/2025 8:14 PM [facility] Blood Venous blood specimen / Unknown Venipuncture / Unknown 05/01/2025 4:02 PM EST 05/01/2025 4:02 PM EST Elizabeth RAMIREZ LAB BLOOD ORDERABLES Final Re sult [facility] [address] [place] [address], [place] [phone] * Chlamydia trachomatis and Neisseria gonorrhoeae molecular study (05/01/2025 4:02 PM EST) [facility] Neisseria gonorrhoeae PCR Negative Negative LAB MOLECULAR DIAGNOSTICS METHOD 05/02/2025 10:08 AM [facility] Chlamydia trachomatis PCR Negative Negative LAB MOLECULAR DIAGNOSTICS METHOD 05/02/2025 10:08 AM [facility] Urine Urine specimen from urethra / Unknown Non-blood Collection / Unknown 05/01/2025 4:02 PM EST 05/01/2025 4:02 PM EST us Mayte Metz NP LAB MICROBIOLOGY - GENERAL ORDER CLAY Final Result [facility] [address] [place] [address], [place] [phone] * (ABNORMAL) Vitamin D 25 hydroxy (05/01/2025 4:02 PM EST) [facility] Vit D, 25-Hydroxy 17.4(L) 30.0 - 80.0 ng/mL LAB CHEMISTRY METHOD 05/01/2025 8:09 PM EST [facility] Blood Venous blood specimen / Unknown Venipuncture / Unknown 05/01/2025 4:02 PM EST 05/01/2025 4:02 PM EST us Mayte Metz NURSE HEAD LAB BLOOD ORDERABLES Final Resul t [facility] [address] [place] [address], [place] [phone] * Magnesium (05/01/2025 4:02 PM EST) Magnesium 2.0 1.9 - 2.6 mg/dL LAB CHEMISTRY METHOD 05/01/2025 7:47 PM EST [facility] Blood Venous blood specimen / Unknown Venipuncture / Unknown 05/01/2025 4:02 PM EST 05/01/2025 4:02 PM EST us Mayte Metz NURSE HEAD LAB BLOOD ORDERABLES Final Resul t Performing Organization Address [facility]/ZIP Co de Phone Number [facility] [address] [place] [address], [place] [phone] * Hemoglobin A1c (05/01/2025 4:02 PM EST) Hemoglobin A1C 5.3 <6.5 % LAB CHEMISTRY METHOD 05/02/2025 2:15 PM EST [facility] Mean Bld Glu Estim. 105 mg/dL LAB CHEMISTRY METHOD 05/02/2025 2:15 PM EST [facility] Blood Venous blood specimen / Unknown Venipuncture / Unknown 05/01/2025 4:02 PM EST 05/01/2025 4:02 PM EST us Mayte Metz NURSE HEAD LAB BLOOD ORDERABLES Final Resul t [facility] [address] [place] [address], [place] [phone] * (ABNORMAL) Ferritin (05/01/2025 4:02 PM EST) [facility] Ferritin 5(L) 8 - 252 ng/mL LAB CHEMISTRY METHOD 05/01/2025 8:15 PM EST [facility] Blood Venous blood specimen / Unknown Venipuncture / Unknown 05/01/2025 4:02 PM EST 05/01/2025 4:02 PM EST us Elizabeth RAMIREZ LAB BLOOD ORDERABLES Final Re sult [facility] [address] [place] [address], [place] [phone] * (ABNORMAL) Vitamin B12 (05/01/2025 4:02 PM EST) [facility] Vitamin B-12 1,357(H) 250 - 900 pcg/mL LAB CHEMISTRY METHOD 05/01/2025 8:14 PM EST [facility] Blood Venous blood specimen / Unknown Venipuncture / Unknown 05/01/2025 4:02 PM EST 05/01/2025 4:02 PM EST us Mayte Metz NP LAB BLOOD ORDERABLES Final Resul t [facility] [address] [place] [address], [place] [phone] * Comprehensive metabolic panel (05/01/2025 4:02 PM EST) [facility] Sodium 138 133 - 145 mmol/L LAB CHEMISTRY METHOD 05/01/2025 8:14 PM EST [facility] Potassium 3.7 3.5 - 5.5 mmol/L LAB CHEMISTRY METHOD 05/01/2025 8:14 PM EST [facility] Chloride 106 96 - 110 mmol/L LAB CHEMISTRY METHOD 05/01/2025 8:14 PM [facility] CO2 26 21 - 32 mmol/L LAB CHEMISTRY METHOD 05/01/2025 8:14 PM [facility] Anion Gap 6 3 - 11 LAB CHEMISTRY METHOD 05/01/2025 8:14 PM [facility] Glucose 93 70 - 100 mg/dL LAB CHEMISTRY METHOD 05/01/2025 8:14 PM [facility] BUN 11 5 - 25 mg/dL LAB CHEMISTRY METHOD 05/01/2025 8:14 PM [facility] Creatinine 0.73 0.50 - 1.10 mg/dL LAB CHEMISTRY METHOD 05/01/2025 8:14 PM [facility] eGFR 107 >=60 mL/min/1. 73m2 LAB CHEMISTRY METHOD 05/01/2025 8:14 PM [facility] Comment:Calculation based on the Chronic Kidney Disease Epidemiology Collaboration (CKD-EPI) equation refit without adjustment for race. BUN/Creatinine Ratio 15.1 LAB CHEMISTRY METHOD 05/01/2025 8:14 PM [facility] Calcium 9.0 8.5 - 10.5 mg/dL LAB CHEMISTRY METHOD 05/01/2025 8:14 PM [facility] AST (SGOT) 15 10 - 42 unit/L LAB CHEMISTRY METHOD 05/01/2025 8:14 PM [facility] ALT (SGPT) 29 10 - 60 unit/L LAB CHEMISTRY METHOD 05/01/2025 8:14 PM [facility] Alkaline Phosphatase 78 42 - 121 unit/L LAB CHEMISTRY METHOD 05/01/2025 8:14 PM [facility] Total Protein 7.3 6.0 - 8.0 g/dL LAB CHEMISTRY METHOD 05/01/2025 8:14 PM [facility] Albumin 3.6 3.2 - 5.0 g/dL LAB CHEMISTRY METHOD 05/01/2025 8:14 PM EST [facility] Total Bilirubin 0.2 0.0 - 1.4 mg/dL LAB CHEMISTRY METHOD 05/01/2025 8:14 PM EST [facility] Blood Venous blood specimen / Unknown Venipuncture / Unknown 05/01/2025 4:02 PM EST 05/01/2025 4:02 PM EST us Mayte Metz NURSE HEAD LAB BLOOD ORDERABLES Final Resul t [facility] [address] [place] [address], [place] [phone] * MG Mammo Digital Screening w Richard bilat (04/06/2025 8:51 AM EDT) Anatomical Region Laterality Modality Breast Bilateral Mammography 04/08/2025 7:59 AM EDT Impressions 04/08/2025 8:02 AM EDT No evidence of breast malignancy. BI-RADS CATEGORY: 1 - NEGATIVE RECOMMENDATION: Screening bilateral mammogram is recommended in 1 year. Mammo Location: [facility], [address], [place], [address], . -------- FINAL REPORT -------- Dictated By: Poppy Jackson Dictated Date: 04/08/2025 07:59 ET Assigned Physician: Poppy Jackson Reviewed and Electronically Signed By: Poppy Jackson Signed Date: 04/08/2025 08:02 ET Workstation ID: [id number] Transcribed By: Self Edit Transcribed Date: 04/08/2025 07:59 ET Narrative 04/08/2025 8:02 AM EDT CLINICAL: 39 years old, Female, baseline exam. COMPARISON: No prior studies TECHNIQUE: Bilateral MLO and CC views were obtained digitally with 3-D mammogram (digital breast tomosynthesis). Computer-aided detection was utilized in evaluation of this exam (CAD). FINDINGS: There is no evidence of suspicious mass or architectural distortion. No worrisome calcifications are evident. Small intramammary lymph nodes in the right breast. BREAST DENSITY: B - There are scattered areas of fibroglandular density. Procedure Note Poppy Jackson MD - 04/08/2025 CLINICAL: 39 years old, Female, baseline exam. COMPARISON: No prior studies TECHNIQUE: Bilateral MLO and CC views were obtained digitally with 3-Dmammogram (digital breast tomosynthesis). Computer-aided detection wasutilized in evaluation of this exam (CAD). FINDINGS: There is no evidence of suspicious mass or architectural distortion. Noworrisome calcifications are evident. Small intramammary lymph nodes inthe right breast. BREAST DENSITY: B - There are scattered areas of fibroglandular density. IMPRESSION: No evidence of breast malignancy. BI-RADS CATEGORY: 1 - NEGATIVE RECOMMENDATION: Screening bilateral mammogram is recommended in 1 year. Mammo Location: [facility], [address] [place] [address], [id number], . -------- FINAL REPORT -------- Dictated By: Poppy Jackson Dictated Date: 04/08/2025 07:59 ET Assigned Physician: Poppy Jackson Reviewed and Electronically Signed By: Poppy Jackson Signed Date: 04/08/2025 08:02 ET Workstation ID: [id number] Transcribed By: Self Edit Transcribed Date: 04/08/2025 07:59 ET Self Referral Sppl IMG BI PROCEDURES Final Resul t * Depression Screening (02/16/2024) Depression Screening abstracted Historical Provider HEALTH MAINTENANCE Final Result * Pap Smear (09/20/2023) Pap smear no interpretation , abstracted Historical Provider HEALTH MAINTENANCE Final Result from Last 3 Months or Most Recently Relevant to Health Maintenance Insurance [facility] Care Teams Chaplain Relationship Specialty Start Date End Date Gerald Haddad MD [address] [place] [phone] PCP - General 09/19/23
--- OUTSIDE RECORDS SUMMARY | 2025-05-06 08:11 | XMS_ITS | Encounter Summary ---
Author Organization [facility] Address [address] [place] [address] Care Team Providers Care Machine Splitter Name Role Phone Gerald Haddad MD Primary Care Provider [phone] Encounter Details Date Type Department Care Team (Late st Contact Info) Description 05/02/2025 Results Follow-Up [facility] Hematology Oncology [address] [place] [phone] Elizabeth Martinez PA [address] [place] [address] Social History Tobacco Use Types Packs/Day Years [...] care for your loved ones. For example, childcare center director or elderly care for an older adult? [...] AM EST documented as of this encounter Ordered Prescriptions Prescription Sig Dispense Quantity Refills Last Filled Start Date End Date cholecalciferol (Vitamin D3) 50 mcg (2,000 unit) tabletIndications: Vitamin D deficiency Take 1 tablet (2,000 Units total) by mouth 1 (one) time each day. 90 tablet 3 05/02/2025 05/02/2026 documented in this encounter Plan of Treatment Upcoming Encounters Date Type Department Care Team (Late st Contact Info) Description 08/01/2025 8:30 AM EST Office Visit [facility] Hematology Oncology [address] [place] [phone] Elizabeth Martinez PA [address] [place] [address] Pending Results Name Type Priority Associated Diagnoses Date /Time Hepatitis C virus quantitative molecular study Lab Routine Hepatitis C antibody positive 05/06/2025 7:46 AM EST Scheduled Orders Name Type Priority Associated Diagnoses Orde r Schedule Hepatitis C virus quantitative molecular study Lab Routine Hepatitis C antibody positive 1 Occurrences starting 05/02/2025 until 05/02/2026 documented as of this encounter Visit Diagnoses Diagnosis Hepatitis C antibody positive- Primary Vitamin D deficiency documented in this encounter Additional Health Concerns Assessment Noted Time PHQ-9 Depression Total Score: 3 09/20/19 25 3:27 PM EDT documented as of this encounter Care Teams Machine Splitter Relationship Specialty Start Date End Date Gerald Haddad MD [address] [facility] [address] [place] [phone] PCP - General 09/19/23 documented as of this encounter
--- OUTSIDE RECORDS SUMMARY | 2025-05-06 08:12 | XMS_ITS | Patient Health Record ---
Author Organization [facility] Address [address] [place] [address] Care Team Providers Care Seed Analyst Name Role Phone VALERIE HOOKS Unavailable [phone] Reason For Referral No Information Medications Medication SIG (Take, Route, Frequency, Duration) Notes Start Date End Date Status 1 30-0.975-200 MG as directed O rally once a day; Duration: 90 days 12/16/2016 Active 1 30-0.975-200 MG as directed O rally once a day; Duration: 90 days 08/16/2016 Active Social History Tobacco Use: Social History Observation Description Date Details (start date - stop date) Never Smoker NA - NA Tobacco Use/Smoking Question Answer Notes Are you a nonsmoker Problems Problem Type SNOMED Code ICD Code Onset Dates Problem Status W/U Status Risk Notes Problem Leukocytosis (067837253) Elevated white blood cell count, unspecified (D72.829) Active confirmed Problem Irregular Menstruation (83310063) Other specified irregular menstruation (N92.5) Active confirmed Plan Of Treatment Pending Test Test Name Order Date Urinalysis, Routine 08/16/2016 Obstetric Panel, Including HIV 7 Cystic Fibrosis Profile 09/24/2016 AFP Tetra 09/24/2016 Hgb Frac. w/o Solubility 09/24/2016 Insurance Providers Payer Name Payer Address Payer Phone Subscriber Number Group Number Insured Name Patient Relationship to Insured Coverage Start Date Coverage End Date [employer] [address] [address] [place] [address] [phone] [id number] Yolanda Dumont Self - patient is the insured Medical (General) History Medical History History ICD Code Anemia Hospitalization History Reason Date(Month/Year) CHILDBIRTH X2
--- OUTSIDE RECORDS SUMMARY | 2025-05-06 08:13 | XMS_ITS | Patient Health Record ---
Author Organization [facility] Address [address] [place] [address] Support Name Relationship Address Phone RODO MCMAHONRIA Guarantor Unknown [phone] Allergies No Known Allergies Reason For Referral No Information Medications Medication SIG (Take, Route, Frequency, Duration) Notes Start Date End Date Status Escitalopram Oxalate 10 MG Tablet 1 tablet Orally Once a day; Duration: 30 day(s) 11/19/2021 Unknown Ferrous Sulfate 325 (65 Fe) MG Tablet 1 tablet Orally Once a day 04/16/2022 Active Ibuprofen 800 MG Tablet 1 tablet with fo od or milk as needed Orally every 12 hours; Duration: 20 days Unknown Cyclobenzaprine HCl 10 MG Tablet 1 tablet at bedtime as needed Orally Once a day; Duration: 30 days Unknown Social History Social History Tobacco Use: Social Info Question Answer Notes Smoking Does patient smoke cigarettes? No Was patient a former smoker? No Additional Details Category Social Info Options Details Drugs/Alcohol: Do you smoke marijuana? De nies Do you drink alcohol? 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 Problem Morbid obesity (disorder) (352018659) Morbid (severe) obesity due to excess calories (E66.01) Active confirmed Problem Generalized anxiety disorder (23092885) Generalized anxiety disorder (F41.1) Active confirmed Problem Abnormal vaginal bleeding (843341158) Other specified abnormal uterine and vaginal bleeding (N93.8) Active confirmed Problem Exposure to sexually transmissible disorder (131211957) Contact with and (suspected) exposure to infections with a predominantly sexual mode of transmission (Z20.2) Active confirmed Problem Seasonal allergy (177925923) Seasonal allergies (J30.2) Active confirmed Problem Laboratory test result abnormal (737973789) Abnormal laboratory test result (R89.9) Active confirmed Plan Of Treatment Pending Test Test Name Order Date X ray : Spines, lumbar 12/17/2021 LIPID PANEL, STANDARD 09/30/2021 COMPREHENSIVE METABOLIC PANEL 09/30/2021 CBC (INCLUDES DIFF/PLT) 09/30/2021 URINALYSIS, COMPLETE 09/30/2021 HEMOGLOBIN A1c 09/30/2021 TSH 09/30/2021 Insurance Providers Payer Name Payer Address Payer Phone Subscriber Number Group Number Insured Name Patient Relationship to Insured Coverage Start Date Coverage End Date [employer] [address] [place] [address] [id number] TOPHER MCMAHON Self - patient is the insured 1 Medical (General) History Medical History History ICD Code iron deficiency anemia Surgical History Surgery Date(Month/Year) tonsillectomy appendectomy
--- NOTE | 2025-05-06 08:18 | MHC.OFFVISWM ---
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50pm Breakfast: skips Lunch: 12.30pm (chicken, rice, beans, tacos) Dinner: 9pm Snacks: 11am (snack) Exercise: none Beverages: Coffee: none, Tea: none PFSH Medical History (Updated 05/06/25 @ 08:21 by Oziel Alberts MD) Insomnia Anxiety Depression Morbid obesity Surgical History (Updated 03/29/25 @ 10:19 by Elli Ruiz CMA) Hx of tonsillectomy Hx of appendectomy Family History (Updated 03/29/25 @ 10:20 by Elli Ruiz CMA) Father No problems noted. Mother No problems noted. Social History (Updated 03/29/25 @ 10:20 by Elli Ruiz CMA) Alcohol intake: current Alcohol intake frequency: holidays/special occasions only Patient Tobacco Use Status: Never used Tobacco Telehealth Telehealth Telehealth Platform: Telephone Location of provider rendering services: practice address Location of patient: address on file Patient Identification confirmed using: Name, : Yes Telehealth method: voice only Patient verbally consented to treatment: Yes Patient verbally consented to billing insurance company: Yes Patient informed of any privacy concerns related to visit: Yes Minutes spent on Phone/Video with Pt.: 22 Assessment & Plan Assessment & Plan (1) Morbid obesity: Code(s): E66.01 - Morbid (severe) obesity due to excess calories Category: Medical Plan: 1. As we discussed, based on your present BMI you are approximately 100lbs overweight. In my opinion, for any weight loss strategy to be successful should have a high probability to help you lose at least 85lbs out of 100lbs of the extra weight you carry. We discussed in detail the available therapeutic options: 1) our lifestyle intervention program that has an average weight loss of 10% in 3 months.?Some patients continue it for longer and have lost over 50lbs but this is not common. Our lifestyle program can be provided by me. I will provide you with a link to use the emeka if you choose to do so. We use protein shakes and protein bars to replace some of the meals of the day and cover your appetite better. We will decide together the exact combination. 2) Weight loss medications: these can be used in conjunction with our lifestyle program or you may choose to use them without following a lifestyle program from my program but your own. As we discussed, your insurance may approve the new weight loss medications the shots but it's not for sure. Common side effects include nausea, vomiting, diarrhea or constipation. An alternative medication, if the insurance does not cover the shots is the Phentermine pill. It is well tolerated and most common side effects include blood pressure elevation, dry mouth, difficulty sleeping and heart palpitations. We also discussed that you can self pay for the weight loss injections and the cost is $249 for the first month and $499 for any other month thereafter. These payments go to the drug company directly and not to us. As we discussed, the medications are not a long term acute care registered nurse solution, as most patients put all the weight back once they are off the medication. 3) We also discussed about the lap sleeve gastrectomy. In my opinion this is the best option to solve your problem based on your situation and should be used in conjunction with the two previous options. A good strategy to make this decision to proceed with surgery, as soon as you achieve a specific goal with the lifestyle intervention and medication options: to lose least 10% of your initial weight in 3 months. ?I emphasized the importance of close follow-up, adherence to instructions and good communication. The surgery does not replace the need to change your lifestlyle which is the cause of the obesity problem. The surgery provides the motivation to try again to change your lifestyle, it reduces the appetite and make the transition to a better lifestyle easier and doubles the amount of weight you would lose compared to doing the lifestyle change without the surgery. You will need to be on a liquid diet with protein shakes for 2 weeks before surgery to maximize weight loss and boost your nutritional status to recover better from surgery and also for the first two weeks after surgery to let the stomach heal before we introduce other foods. After the first 2 weeks we will introduce protein bars and soft foods like scrambled eggs, cottage cheese and yogurt and after the 6th week will introduce meat, fish and cooked vegetables in small amounts. Over time you should be able to eat everything in small amounts. Side effects like nausea, vomiting, heartburn or abdominal pain are not common in the practice unless you are not following in the practice. This operation requires lifetime commitment to following in our practice and communication with me. You will much less weight and experience side effects if you don?t communicate or not following in the practice. Complications are rare and in our practice is about 1/10 of the national average.
[2025-05-06 08:30] VITALS: BMI 40.2
== END 2025-05-06 08:38 | disposition home or self-care (01) ==
LOC: HO.HBS 08:05
PROVIDERS: PCP Student in an Organized Health Care Education/Training Program; Visit Provider Surgery
DX: E66.01 Morbid (severe) obesity due to excess calories (principal)
CPT/HCPCS: 99202